=== PATIENT | male | born 1960 | race Caucasian/White ===

== ENCOUNTER 2024-11-14 10:14 | Outpatient (CLI) | payer MEDICARE, SELFPAY ==
--- NOTE | ~2024-11-14 | XR_ITS ---
EXAMINATION: XR chest 2V 11/14/2024 10:31 INDICATION: Cough PROCEDURE: 2 view chest COMPARISON: No prior studies for comparison. FINDINGS: The lungs are clear. The cardiomediastinal silhouette is within normal limits. There are no pleural effusions. There is no pneumothorax suspected. IMPRESSION: 1: NO ACUTE CARDIOPULMONARY DISEASE. Reviewed, dictated and finalized at location A.
== END 2024-11-14 10:15 | disposition home or self-care (01) ==
PROVIDERS: PCP Nurse Practitioner; Visit Provider Nurse Practitioner
DX: R05.9 Cough, unspecified (principal)
CPT/HCPCS: 71046

== ENCOUNTER 2024-11-23 10:31 | Outpatient (CLI) | payer MEDICARE, SELFPAY ==
--- OUTSIDE RECORDS SUMMARY | 2024-11-23 11:08 | XMS_ITS | Clinical Summary ---
Author Organization [facility] Address [address] [place] [address] Care Team Providers Care Skiver Welt End Name Role Phone Makeda North MD Unavailable [phone] Iris Pantoja NP Primary Care Provider [phone] Allergies No known active allergies Medications omeprazole (PriLOSEC) 40 mg capsule Take 1 capsule (40 mg total) by mouth 2 (two) times a day Active tadalafiL (CIALIS) 5 mg tablet Take 1 tablet (5 mg total) by mouth daily 2 Active metoprolol XL (TOPROL-XL) 50 mg extended release tabletIndications :Polycythemia, secondary,Primary hypertension Take 1 tablet (50 mg total) by mouth daily 2 Active amLODIPine (NORVASC) 10 mg tablet Take 1 tablet (10 mg total) by mouth daily Active atorvastatin (LIPITOR) 10 mg tablet 3 Active cholecalciferol (Vitamin D3) 2000 unit tablet 2 Active testosterone enanthate 50 mg/0.5 mL auto-injector Inject under the skin once a week Active Active Problems Problem Noted Date Diagnosed Date Polycythemia, secondary 07/09/2022 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 Seen by Dr. See, found to have 20/30 VA OU, no rAPD documented, but disc edema OS with avg RNFL 92um OD and 190um OS per written notes. He had no labwork or imaging at that time. Denies GCA symptoms; no pain with motility but has some general discomfort OS. Does take daily sildenafil. No hx TERRENCE. No prior known episodes of this. Today, exam notable for VA 20/20 OU (ecc OS), +rAPD OS, full color vision, normal motility and unremarkable anterior exam. On dilated exam he has a crowded nerve without obvious pallor and no edema OD and Gr III disc edema with flame heme OS. OCT RNFL avg 97 OD and 295 OS. The GCL was full OD and poorly reliable OS due to artifact. HVF 24-2 from 10/06/[address] See's office personally interpreted and notable for n inferior arcuate with nasal defect crossing horizontal meridian but not involving fixation OD (MD -9.91 PSD 13.40), and superior and inferior arcuates OS (MD - 11.07 PSD 10.81). The foveal threshold was turned off. 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 He does have risk factors for NAION and does take sildenafil which has been associated with this condition. Other things on the differential include compressive lesion, inflammatory or infiltrative. He does not have any GCA symptoms but given his age it is important to check ESR/CRP/Plt. Because his presentation is slightly unusual, it is reasonable to get an MRI brain including orbits with and without contrast. Plan: - Labwork: ESR/CRP/CBC - MRI brain including orbits with and without contrast - RTC 4-6 weeks repeat testing Resolved Problems Problem Noted Date Diagnosed Date Resolved Date Corneal ulcer 10/21/2021 Overview (10/21/2021): due to CTL overwear in past, OD Immunizations Immunization Administration Dates Next Due Influenza, Unspecified 06/24/2022 Surgical History Surgery Date Site/Laterality Comments COLONOSCOPY Medical History Medical History Date Comments Corneal ulcer due to CTL overw ear in past, OD Hypertension Family History Medical History Relation Name Comments Diabetes Brother Hypertension Brother Cancer Father Lung, smoker Diabetes Father Hypertension Father Cancer Mother HPV Vaginal cancer Mother Hypertension Sister Glaucoma Neg Hx Macular degeneration Neg Hx Relation Name Status Comments Brother Father Mother Sister Social History Tobacco Use Types Packs/Day Years Used Date Smoking Tobacco: Never Tobacco Cessation:Counseling Given: Not Answered AUDIT-C Answer Date Recorded Frequency of Alcohol Consumption Not on file 06/24/2023 Q2: How many drinks containi ng alcohol do you have on a typical day when you are drinking? 3 or 4 06/24/2023 Q3: How often do you have si x or more drinks on one occasion? Weekly 06/24/2023 Personal Safety Answer Date Recorded Getting School Help Needed Not on file 08/26 Sex and Gender Information Value Date Recorded Sex Assigned at Not on file Legal Sex Male 9:57 AM SIGN LANGUAGE TRANSLATOR Gender Identity Not on file Sexual Orientation Not on file Occupation Industry Job Start Date Job End Date [employer] Not on file Not on file Not on file Obstetrics History Last Filed Vital Signs Vital Sign Reading Time Taken Comments Blood Pressure 132/89 06/18/2024 9:14 AM CDT Pulse 65 06/18/2024 9:14 AM CDT Temperature 36.6 C (97.8 F) 06/18/2024 9:14 AM CDT Respiratory Rate 18 06/18/2024 9:14 AM CDT Oxygen Saturation 97% 06/18/2024 9:1 4 AM CDT Inhaled Oxygen Concentration - - Weight 100.5 kg (221 lb 9.6 oz) 024 9:14 AM 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 Height 180.3 cm (5' 11 ) 06/24/2023 8:5 7 AM CDT Body Mass Index 30.91 06/24/2023 8:57 AM CDT Plan of Treatment Health Maintenance Due Date Last Done Comments Colon Cancer Screening-Colonoscopy 1960 Depression Screening 1960 Fall Risk Assessment 1960 Hepatitis C Screening 1960 Prostate Cancer Screening-PSA 1960 DTaP/Tdap/Td Vaccine (1 - Tdap) 1969 Hepatitis B Screening 01/11/1976 Pneumococcal vaccine 65+ (1 of 1 - PCV) 01/11/2008 Zoster Vaccine (1 of 2) 01/11/2008 Well Visit 65+ 2023 Influenza Vaccine (Season Ended) 2025 11/03/20 22 Insurance MEDICARE [employer] CLAIMS OFFICE MEDICARE [employer] CLAIMS OFF[employer] Care Teams Skiver Welt End Relationship Specialty Start Date End Date Iris Pantoja NP [address] [place] [address] PCP - General Family Medicine 06/18/24 Makeda North MD [address] DIV [employer] BONE MARROW TRANSPLANT, [address] [place] [address] Medical Oncologist/Consumer Relations Complaint Clerk Hematology 06/24/23
--- OUTSIDE RECORDS SUMMARY | 2024-11-23 11:08 | XMS_ITS | Clinical Summary ---
Author Organization [facility] Address [address] [place] [address] Care Team Providers Care Fulfillment Specialist Name Role Phone Herve Rosado MD Unavailable Unavailable Iris Pantoja Primary Care Provider Allergies No known active allergies Medications atorvastatin 10 MG tablet Take 10 mg by mouth daily. Active omeprazole 40 MG capsule Take 40 mg by mouth 2 (two) times daily. Active Testosterone 75 MG PELLET 75 mg by Implant route every 4 (four) months. Active sildenafil 20 MG tablet Take 20 mg by mouth daily. Active losartan-hydroC HLOROthiazide 50-12.5 MG tablet Take 1 tablet by mouth daily. Active oxybutynin XL 10 MG 24 hr tablet Take 10 mg by mouth nightly. 1 Active tadalafil (CIALIS) 5 MG tablet Take 5 mg by mouth daily. Active rosuvastatin (CRESTOR) 5 MG tablet Take 5 mg by mouth nightly at bedtime. 3 Active predniSONE (DELTASONE) 20 MG tablet Take 1 tablet by mouth daily. 2 Active predniSONE (DELTASONE) 10 mg tablet TAKE FOUR TABLETS BY MOUTH DAILY FOR 4 DAYS, THEN TAKE THREE TABLETS DAILY FOR 4 DAYS, THEN TAKE TWO TABLETS DAILY FOR 4 DAYS, THEN TAKE ONE TABLET DAILY FOR 4 DAYS. 3 Active fish oil (OMEGA-3 FATTY ACID) 1000 MG Cap capsule Active neomycin-polymy tereso-dexamethaso ne (MAXITROL) 3.5-76653-8.1 Suspension INSTILL 1 DROP INTO RIGHT EYE THREE TIMES DAILY FOR 7 DAYS (SHAKE WELL) 2 Active metoprolol succinate ER (TOPROL-XL) 50 MG 24 hr tablet Take 50 mg by mouth daily. Active metFORMIN ER (GLUCOPHAGE-XR) 500 MG 24 hr tablet TAKE ONE TABLET BY MOUTH ONCE A DAY WITH LARGEST MEAL FOR A WEEK AND THEN INCREASE TO TWO TABLET BY MOUTH WITH LARGEST MEAL, AND THEN FINALLY INCREASE TO THREE TABLETS BY MOUTH DAILY WITH LARGEST MEAL THEREAFTER 2 Active magnesium oxide (MAG-OX) 250 MG tablet 250 mg daily. Active HYDROcodone-chl orpheniramine ER (TUSSIONEX) 10-8 MG/5ML suspension TAKE 5 ML BY MOUTH TWICE DAILY 2 Active vitamin B-12 (CYANOCOBALAMIN ) 1000 MCG tablet Take 1,000 mcg by mouth daily. Active Calcium Carb-Cholecalci ferol (CALCIUM 1000 + D) 1000-20 MG-MCG Tab Take by mouth Active azithromycin (ZITHROMAX) 250 MG tablet TAKE 2 TABLETS BY MOUTH ON DAY 1, AND THEN TAKE 1 TABLET BY MOUTH ONCE A DAY ON DAY 2 THROUGH DAY 5 2 Active amLODIPine (NORVASC) 5 MG tablet Take 1 tablet by mouth daily. 2 Active amLODIPine (NORVASC) 10 MG tablet Take 1 tablet by mouth daily. 3 Active NON FORMULARY FOLLOW PACKAGE DIRECTIONS TWICE DAILY 2 Active chlorhexidine (HIBICLENS) 4 % Liquid Use the night before surgery and the morning of surgery. 118 mL 3 Active ondansetron (ZOFRAN) 8 MG tablet Take 1 tablet (8 mg total) by mouth every 8 (eight) hours as needed. 20 tablet 3 Active KNEE WALKERIndicatio ns:Posterior tibial tendonitis, left Apply 1 Device topically daily. 1 each 3 Active Active Problems Problem Noted Date Diagnosed Date S/P TKR (total knee replacement), left 0 Total knee replacement status, right 02/20/2020 Chest pain, unspecified chest pain type 03/05/20 16 Abnormal EKG 03/05/2016 Erosive gastritis Overview (03/05/2016): PMH OF ESOPHAGEAL DILATATION Encounters Date Type Department Care Team Description 09/17/2024 10:13 AM STENO POOL SUPERVISOR - 09/17/2024 11:59 PM STENO POOL SUPERVISOR Hospital Encounter [facility] [address] [place] [address] Ludivina Meza MD Discharge Disposition: Home or Self Care (Routine Discharge) 09/17/2024 Travel from Last 3 Months Immunizations Name Administration Dates Next Due MODERNA COVID-19 (AUTOMOTIVE PROFESSIONAL JULI MAYKEL), MRNA, LNP-S, PF, 50 MCG/ 0.25 ML DOSE 08/06/2021 Family History Medical History Relation Comments Diabetes Brother Hyperlipidemia Brother Hypertension Brother Cancer Father Cancer Mother Hyperlipidemia Sister Hypertension Sister Heart Disease Neg Hx Relation Status Comments Brother Father Mother Alive Sister Social History Tobacco Use Types Packs/Day Years Used Date Smoking Tobacco: Never Smokeless Tobacco: Never Tobacco Cessation:Counseling Given: Not Answered Alcohol Use Standard Drinks/Week Comments Yes 3 (1 standard drink = 0.6 oz pur e alcohol) social weekend drinks Sex and Gender Information Value Date Recorded Sex Assigned at Not on file Legal Sex Male 3:57 PM CDT Gender Identity Not on file Sexual Orientation Not on file Last Filed Vital Signs Vital Sign Reading Time Taken Comments Blood Pressure 130/96 10/31/2020 8:10 AM STENO POOL SUPERVISOR Pulse 76 10/31/2020 8:10 AM STENO POOL SUPERVISOR Temperature 36.4 C (97.6 F) 10/31/2020 8:10 AM STENO POOL SUPERVISOR Respiratory Rate 16 10/31/2020 8:10 AM STENO POOL SUPERVISOR Oxygen Saturation 97% 10/31/2020 8:10 AM STENO POOL SUPERVISOR Inhaled Oxygen Concentration - - Weight 91.6 kg (202 lb) 01/03/2023 11:42 AM CDT Height 180.3 cm (5' 11 ) 01/03/2023 11:42 AM CDT Body Mass Index 28.17 01/03/2023 11:42 AM CDT Plan of Treatment Health Maintenance Due Date Last Done Comments Colorectal Cancer Screening Colonoscopy (10 Years) 1958 Hepatitis C 01/11/1976 DTaP, Tdap and Td Vaccines ( 1 - Tdap) 1977 Zoster Vaccines (1 of 2) 01/11/2008 Annual Medicare Wellness Visit 2023 Pneumococcal Vaccine: 65+ Years (2 of 2 - PPSV23 or PCV20) 2023 06/13/2019 COVID-19 Vaccine (4 - 2023-2 5 season) 2024 08/06/2021, 12/12/2020, 11/14/2020 RSV Immunization or 60+ Years (1 - 1-dose 75+ series) 2033 Meningococcal B Vaccine Aged Out No l onger eligible based on patient's age to complete this topic Meningococcal Vaccine Aged Out No kranthi susy eligible based on patient's age to complete this topic RSV Immunizations Under 20 Months Aged Out No longer eligible b ased on patient's age to complete this topic Goals Goal Patient Goal Type Associated Problems Recent Progress Patient-Stated? Author HDL > 40 Result Component 22(09/29/2020 9:15 AM STENO POOL SUPERVISOR) No Herbert Penaloza assistant professor nurse education Procedure Name Priority Date/Time Associated Diagnosis Comments CT CHEST WWO CON Routine 09/17/2024 10:4 1 AM STENO POOL SUPERVISOR Chronic cough CT SOFT TISSUE NECK W CON Routine 09/17/2024 10:41 AM STENO POOL SUPERVISOR Chronic hoarseness from Last 3 Months Results * CT CHEST WWO CON (09/17/2024 10:41 AM STENO POOL SUPERVISOR) Anatomical Region Laterality Modality Chest Computed Tomogra phy 09/19/2024 8:29 AM STENO POOL SUPERVISOR Impressions 09/19/2024 8:37 AM STENO POOL SUPERVISOR IMPRESSION: 1. No acute intrathoracic process identified. No source of the patient's symptoms identified. 2. Coronary artery disease. 3. Aortic valve calcification. 4. Hepatic steatosis. 5. Additional chronic/nonurgent findings as described. Ordered By: LUDIVINA MEZA Interpreted By: Yoel Nielsen MD, 09/19/2024 8:29 AM Narrative 09/19/2024 8:37 AM STENO POOL SUPERVISOR [address] [place] [address] Examination: CT of the chest without and with contrast. Exam time: 1038 hours. Clinical history: Persistent cough. Comparison: CTA chest, abdomen and pelvis, 06/12/2020. Technique: Spiral scanning was performed through the chest prior to and following the administration of intravenous contrast. Sagittal and coronal reconstructions were performed from the data sets. A dose lowering technique was used for this procedure, which may include, but is not limited to, dose reduction techniques, automated exposure control, the use of iterative reconstruction and ALARA/Image Gently techniques. Findings: Calcific coronary artery disease, aortic valve calcification and minor atherosclerotic calcification of the aorta and arch vessels noted. A physiologic volume of pericardial fluid is present. Gas bubbles in the pulmonary outflow tract are presumably iatrogenic. The heart and great vessels are otherwise unremarkable. No hilar or mediastinal adenopathy is identified. No endobronchial abnormality is identified. There is minimal subsegmental atelectasis posteriorly in the left lower lobe. Allowing for respiratory motion, the lungs are otherwise clear. No pleural abnormalities are seen. The chest wall structures are unchanged. The included sections through the upper abdomen show no acute process. The liver is mildly and diffusely diminished in attenuation relative to the spleen on the precontrast images, compatible with steatosis. Incidental splenule is again evident. There is stable mild splenomegaly (approximately 15 cm). Haziness at the root of the mesentery is again noted suggesting mesenteric panniculitis, presumably incidental and asymptomatic. Procedure Note Yoel Nielsen MD - 09/19/[address] [place] [address] Examination: CT of the chest without and with contrast. Exam time: 1038 hours. Clinical history: Persistent cough. Comparison: CTA chest, abdomen and pelvis, 06/12/2020. Technique: Spiral scanning was performed through the chest prior to andfollowing the administration of intravenous contrast. Sagittal and coronalreconstructions were performed from the data sets. A dose loweringtechnique was used for this procedure, which may include, but is notlimited to, dose reduction techniques, automated exposure control, the useof iterative reconstruction and ALARA/Image Gently techniques. Findings: Calcific coronary artery disease, aortic valve calcification andminor atherosclerotic calcification of the aorta and arch vessels noted. Aphysiologic volume of pericardial fluid is present. Gas bubbles in thepulmonary outflow tract are presumably iatrogenic. The heart and greatvessels are otherwise unremarkable. No hilar or mediastinal adenopathy isidentified. No endobronchial abnormality is identified. There is minimalsubsegmental atelectasis posteriorly in the left lower lobe. Allowing forrespiratory motion, the lungs are otherwise clear. No pleuralabnormalities are seen. The chest wall structures are unchanged. Theincluded sections through the upper abdomen show no acute process. Theliver is mildly and diffusely diminished in attenuation relative to thespleen on the precontrast images, compatible with steatosis. Incidentalsplenule is again evident. There is stable mild splenomegaly(approximately 15 cm). Haziness at the root of the mesentery is againnoted suggesting mesenteric panniculitis, presumably incidental andasymptomatic. IMPRESSION: 1. No acute intrathoracic process identified. No source of the patient'ssymptoms identified. 2. Coronary artery disease. 3. Aortic valve calcification. 4. Hepatic steatosis. 5. Additional chronic/nonurgent findings as described. Ordered By: LUDIVINA MEZA Interpreted By: Yoel Nielsen MD, 09/19/2024 8:29 AM Ludivina Meza MD CT Final Result * CT SOFT TISSUE NECK W CON (09/17/2024 10:41 AM STENO POOL SUPERVISOR) Anatomical Region Laterality Modality Neck Computed Tomogra phy 09/17/2024 11:3 2 AM STENO POOL SUPERVISOR Impressions 09/20/2024 9:20 AM STENO POOL SUPERVISOR IMPRESSION: 1. No definite mass lesion or suspicious lymphadenopathy identified in the neck. No overt inflammatory changes or fluid collections identified in the neck soft tissues. 2. Atherosclerosis. The attending radiologist has reviewed the image(s) and agrees with the content of this report. Ordered By: LUDIVINA MEZA Interpreted By: Timo Smart MD, 09/17/2024 11:32 AM Narrative 09/20/2024 9:20 AM STENO POOL SUPERVISOR [address] [place] [address] EXAMINATION: CT SOFT TISSUE NECK W CON DATE: 09/17/2024 10:40 AM HISTORY: CHRONIC HOARSENESS ; 1.5 months of cough and tickle in throat. COMPARISON: None available TECHNIQUE: Computed tomography of the neck was performed after intravenous administration of 87 mL of Isovue-370 according to routine protocol without immediate complication. A dose lowering technique was used for this procedure, which may include, but is not limited to, dose reduction technique, automated exposure control, the use of iterative reconstruction, and ALARA (As Low As Reasonably Achievable) / Image Gently techniques. FINDINGS: Dental amalgam streak artifact limits evaluation of the oral cavity. The Nasopharynx, oropharynx, hypopharynx, and larynx are unremarkable. The neck vasculature is patent. Atherosclerotic calcifications noted along the carotid arteries. The major salivary glands are symmetric. The thyroid gland is unremarkable. No cervical lymphadenopathy is identified. Images of the intracranial compartment reveal no acute appearing abnormality. Intracranial vascular calcifications. Visualized mastoid air cells and paranasal sinuses are clear. The orbits are unremarkable. Included portions of the upper thorax are unremarkable, and the visualized lung apices are clear. Degenerative changes noted in the spine. Procedure Note Lalit Tanner MD - 09/20/[address] [place] [address] EXAMINATION: CT SOFT TISSUE NECK W CON DATE: 09/17/2024 10:40 AM HISTORY: CHRONIC HOARSENESS ; 1.5 months of cough and tickle in throat. COMPARISON: None available TECHNIQUE: Computed tomography of the neck was performed afterintravenous administration of 87 mL of Isovue-370 according to routineprotocol without immediate complication. A dose lowering technique wasused for this procedure, which may include, but is not limited to, dosereduction technique, automated exposure control, the use of iterativereconstruction, and ALARA (As Low As Reasonably Achievable) / Image Gentlytechniques. FINDINGS: Dental amalgam streak artifact limits evaluation of the oral cavity. TheNasopharynx, oropharynx, hypopharynx, and larynx are unremarkable. Theneck vasculature is patent. Atherosclerotic calcifications noted along thecarotid arteries. The major salivary glands are symmetric. The thyroidgland is unremarkable. No cervical lymphadenopathy is identified. Images of the intracranial compartment reveal no acute appearingabnormality. Intracranial vascular calcifications. Visualized mastoid aircells and paranasal sinuses are clear. The orbits are unremarkable. Included portions of the upper thorax are unremarkable, and the visualizedlung apices are clear. Degenerative changes noted in the spine. IMPRESSION: 1. No definite mass lesion or suspicious lymphadenopathy identified in theneck. No overt inflammatory changes or fluid collections identified in theneck soft tissues. 2. Atherosclerosis. The attending radiologist has reviewed the image(s) and agrees with thecontent of this report. Ordered By: LUDIVINA MEZA Interpreted By: Timo Smart MD, 09/17/2024 11:32 AM Ludivina Meza MD CT Final Result from Last 3 Months Insurance MEDICARE [facility] COMMERCIAL PAYER Care Teams Fulfillment Specialist Relationship Specialty Start Date End Date Iris Pantoja APNP [address] [place] [address] PCP - General NURSE PRACTITIONER 09/16/23 Herve Rosado MD [place] Needle Grader CARDIOVASCULAR DISEASE 02/24/16
--- OUTSIDE RECORDS SUMMARY | 2024-11-23 11:08 | XMS_ITS | Encounter Summary ---
Author Organization [facility] Address [facility] access hospital[address] [place] [address] Care Team Providers Care Crester Name Role Phone Herve Rosado MD Unavailable Unavailable Michael Luis MD Primary Care Provider [phone] Iris Pantoja Primary Care Provider Encounter Details Date Type Department Care Team (Late st Contact Info) Description 10/22/2020 Hospital Orders Only [facility] [address] [place] [address] John Hernandez MD [address] [place] [address] Social History Tobacco Use Types Packs/Day Years Used Date Smoking Tobacco: Never Smokeless Tobacco: Never Alcohol Use Standard Drinks/Week Comments Not Currently 10 (1 standard drink = 0.6 oz pu re alcohol) Sex and Gender Information Value Date Recorded Sex Assigned at Not on file Legal Sex Male 3:57 PM CDT Gender Identity Not on file Sexual Orientation Not on file COVID-19 Exposure Response Date Recorded In the last month, have you been in contact with someone who was confirmed or suspected to have Coronavirus / COVID-19? No / Unsure 10/24/2020 11:18 AM FANCY NEEDLEWORKER documented as of this encounter Plan of Treatment Not on file documented as of this encounter Goals Goal Patient Goal Type Associated Problems Recent Progress Patient-Stated? Author HDL > 40 Result Component 22(09/29/2020 9:15 AM FANCY NEEDLEWORKER) No Herbert Penaloza RN documented as of this encounter Visit Diagnoses Not on filedocumented in this encounter Additional Health Concerns Infection Onset Date Last Indicated Resolved Time COVID-19 Rule Out 10/27/2020 10/28/2020 10/30/2020 5:50 AM FANCY NEEDLEWORKER COVID-19 Rule Out 02/03/2024 02/03/2024 02/04/2024 5:10 PM CDT Parainfluenza 02/03/2024 02/03/2024 02/13/2024 12: 32 AM CDT documented as of this encounter Care Teams Crester Relationship Specialty Start Date End Date Michael Luis MD [address] [place] [address] PCP - General FAMILY PRACTICE 06/12/20 09/15/23 Iris Pantoja APNP [address] [place] [address] PCP - General NURSE PRACTITIONER 09/16/23 Herve Rosado MD [place] Kiln Loader CARDIOVASCULAR DISEASE 02/24/16 documented as of this encounter
--- OUTSIDE RECORDS SUMMARY | 2024-11-23 11:08 | XMS_ITS | CONTINUITY OF CARE DOCUMENT ---
Author Name aren younger Address Unknown Organization [facility] Address [address] [place] [address] Phone [phone] Care Team Providers Care Transmitter Tester Name Role Phone Kiran Julian DO Unavailable [phone] JUSTO CHERY MD Unavailable JUSTO CHERY MD Unavailable PROBLEMS Condition Status Date Provider Notes Cardiovascular screening active Aria Kennedy INSURANCE PROVIDERS Payer name Policy type / Coverage type Jena red constitution party ID SELF PAY TREATMENT PLAN Date Name CT, Coronary Calcium Score HISTORY OF PROCEDURES Procedure Date Procedure Name Provider Procedure Notes S tatus CT- Coronary CA score Kiran Julian DO completed
--- OUTSIDE RECORDS SUMMARY | 2024-11-23 11:08 | XMS_ITS | Encounter Summary ---
Author Organization [facility] Address [address] [place] [address] Care Team Providers Care Extrusion Utility Worker Name Role Phone Herve Rosado MD Unavailable Unavailable Sunil Griffith MD Primary Care Provider [phone] Michael Luis MD Primary Care Provider [phone] Iris Pantoja Primary Care Provider [phone] Encounter Details Date Type Department Care Team (Late st Contact Info) Description 02/25/2016 Abstract [facility] [address] [place] [address] Herve Rosado MD Social History Tobacco Use Types Packs/Day Years Used Date Smoking Tobacco: Never Assessed Sex and Gender Information Value Date Recorded Sex Assigned at Not on file Legal Sex Male 3:57 PM CDT Gender Identity Not on file Sexual Orientation Not on file documented as of this encounter Plan of Treatment Not on file documented as of this encounter Visit Diagnoses Not on filedocumented in this encounter Additional Health Concerns Infection Onset Date Last Indicated Resolved Time COVID-19 Rule Out 10/27/2020 10/28/2020 10/30/2020 5:50 AM AIR SUPPORT OPERATIONS OPERATOR COVID-19 Rule Out 02/03/2024 02/03/2024 02/04/2024 5:10 PM CDT Parainfluenza 02/03/2024 02/03/2024 02/13/2024 12: 32 AM CDT documented as of this encounter Care Teams Extrusion Utility Worker Relationship Specialty Start Date End Date Sunil Griffith MD [address] [place] [address] PCP - General FAMILY PRACTICE 03/15/16 06/11/20 Michael Luis MD [address] [place] [address] PCP - General FAMILY PRACTICE 06/12/20 09/15/23 Iris Pantoja APNP [address] [place] [address] PCP - General NURSE PRACTITIONER 09/16/23 Herve Rosado MD [place] It Quality Analyst CARDIOVASCULAR DISEASE 02/24/16 documented as of this encounter
--- OUTSIDE RECORDS SUMMARY | 2024-11-23 11:08 | XMS_ITS | Encounter Summary ---
Author Organization [facility] Address [facility] [place] [address] Care Team Providers Care Smudger Name Role Phone Herve Rosado MD Unavailable Unavailable Sunil Griffith MD Primary Care Provider [phone] Michael Luis MD Primary Care Provider [phone] Iris Pantoja Primary Care Provider [phone] Encounter Details Date Type Department Care Team (Late st Contact Info) Description 01/27/2019 Abstract [facility] [address] [place] [address] , Generic Conversion, Social History Tobacco Use Types Packs/Day Years Used Date Smoking Tobacco: Never Smokeless Tobacco: Never Alcohol Use Standard Drinks/Week Comments Yes 10 (1 standard drink = 0.6 oz [...] > 40 Result Component 22(09/29/2020 9:15 AM ENTRY LEVEL ACCOUNT EXECUTIVE) No Herbert Penaloza, RN documented as of this encounter Visit Diagnoses Not on filedocumented in this encounter Additional Health Concerns Infection Onset Date Last Indicated Resolved Time COVID-19 Rule Out 10/27/2020 10/28/2020 10/30/2020 5:50 AM ENTRY LEVEL ACCOUNT EXECUTIVE COVID-19 Rule Out 02/03/2024 02/03/2024 02/04/2024 5:10 PM CDT Parainfluenza 02/03/2024 02/03/2024 02/13/2024 12: 32 AM CDT documented as of this encounter Care Teams Smudger Relationship Specialty Start Date End Date Sunil Griffith MD [address] [place] [address] PCP - General FAMILY PRACTICE 03/15/16 06/11/20 Michael Luis MD [address] [place] [address] PCP - General FAMILY PRACTICE 06/12/20 09/15/23 Iris Pantoja APNP [address] [place] [address] PCP - General NURSE PRACTITIONER 09/16/23 Herve Rosado MD [address] Bailiff Or Sheriff CARDIOVASCULAR DISEASE 02/24/16 documented as of this encounter
--- OUTSIDE RECORDS SUMMARY | 2024-11-23 11:08 | XMS_ITS | Referral Summary ---
Author Organization [facility] Address [address] [place] [address] Care Team Providers Care Uniform Attendant Name Role Phone Makeda North MD Unavailable [phone] Iris Pantoja NP Primary Care Provider [phone] Allergies No known active allergies Medications omeprazole [...] 10/21/2021 Assessment & Plan (10/21/2021 12:17 PM DIRECTOR OF PROVIDER RELATIONS): 61yoM with hx HTN, HLD, ED referred [...] Administration Dates Next Due Influenza, Unspecified 06/24/2022 Social History Tobacco Use Types Packs/Day Years [...] on file Legal Sex Male 9:57 AM DIRECTOR OF PROVIDER RELATIONS Gender Identity Not on file Sexual Orientation Not on file 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
[2024-11-23 14:01] LABS: Basophils Percent Auto 0.1 % (0.2-1.2); Eosinophils Percent Auto 0.1 % (0-4.4); Hematocrit 55.3 % (42.0-52.0); Hemoglobin 16.5 g/dL (14.0-18.0); Immature Granulocyte Absolute 0.11 K/mm3 (0.00-0.031); Immature Granulocyte Percent A 0.9 % (0-0.5); Lymphocytes Percent Auto 11.7 % (18.3-44.2); Mean Corpuscular HGB Conc 29.8 g/dl (32-36); Mean Corpuscular Volume 77.2 fl (80-100); Mean Platelet Volume 10.3 fl (7.4-10.4); Monocytes Absolute Auto 1.1 K/mm3 (0.1-0.6); Monocytes Percent Auto 9.4 % (2.6-8.5); Neutrophils Absolute Auto 9.3 K/mm3 (1.3-6.7); Neutrophils Percent Auto 77.8 % (45.5-73.1); Platelet Count Result 264 k/mm3 (150-375); Red Blood Count 7.16 M/mm3 (4.6-6.20); Red Cell Distribution Width 20.5 % (11.5-14.5)
[2024-11-23 14:06] LABS: Add Urine Microscopic? NO; Appearance Urine Clear (Clear); Bilirubin Urine Negative (Negative); Blood Urine Negative (Negative); Color Urine Yellow (Yellow); Glucose Urine UA Negative (Negative); Ketones Urine Negative (Negative); Leukocyte Esterase Ur Negative LEU/UL (Negative); Nitrate Urine Negative (Negative); Protein Urine Negative (Negative); Specific Grav Ur 1.008 (1.001-1.035); Urobilinogen Urine 0.2 mg/dL (<2.0); pH Urine 5.5 (5.0-9.0)
[2024-11-23 14:28] LABS: Anisocytosis 2+; Giant Platelets Present; Hypochromasia 1+; Large Platelets Present; Platelet Estimate Adequate (Adequate); Schistocytes None Seen
[2024-11-23 14:33] LABS: Erythrocyte Sedimentation Rate 3 mm/hr (0-20)
[2024-11-23 14:44] LABS: Alanine Aminotransferase 41 U/L (6-50); Albumin Level 4.8 g/dL (3.5-5.1); Alkaline Phosphatase 75 U/L (38-126); Anion Gap 16 mmol/L (4-12); Aspartate Amino Transferase 42 U/L (17-59); Bilirubin,Total 0.8 mg/dL (0.2-1.3); Blood Urea Nitrogen 16 mg/dL (9-20); Calcium 9.1 mg/dL (8.4-10.2); Carbon Dioxide 22 mmol/L (22-30); Chloride 101 mmol/L (98-107); Estimated Glomerular Filt Rate > 60; Glucose 91 mg/dL (65-110); Potassium 4.1 mmol/L (3.4-5.0); Sodium 139 mmol/L (137-145)
[2024-11-23 15:12] LABS: HIV 1/2 Ab P24 Ag Result Negative (Negative)
[2024-11-26 15:33] LABS: ANA Cascade Screen NEGATIVE (NEGATIVE)
== END 2024-11-23 10:32 | disposition home or self-care (01) ==
LOC: ANHGOSHLAB 10:36
PROVIDERS: PCP Nurse Practitioner; Visit Provider Nurse Practitioner
DX: R50.9 Fever, unspecified (principal)
CPT/HCPCS: 36415; 80053; 81003; 83516; 84443; 85025; 85652; 86038; 86225; 86235; 86703; G0432

== ENCOUNTER 2024-12-06 12:55 | Outpatient (CLI) | payer MEDICARE, SELFPAY ==
--- NOTE | ~2024-12-06 | CT_ITS ---
EXAMINATION: CT sinus w con DATE: 12/06/2024 13:45 INDICATION: Chronic sinusitis. Concern for mucormycosis. TECHNIQUE: Computed tomography (CT) of the paranasal sinuses was performed with 100 mL Omnipaque-350 intravenous contrast. Coronal reconstructions were obtained. Iterative reconstruction technique was e mployed. The dose-length product was 355.01 mGy-cm. COMPARISON: None FINDINGS: There is mild mucoperiosteal thickening in the bilateral maxillary sinuses extending to the bilateral ostiomeatal units which remain patent. Additional mild mucoperiosteal thickening the right frontal s inus and sent to the patent right frontoethmoidal recess. No layering fluid within the nasal sinuses, the butler which remain intact. Nasal septum is midline. Faye bullosa of the right middle turbinate . Orbits are normal. Mastoid air cells and middle ear cavities are clear. Maxillofacial soft tissues are unremarkable. No abscesses. IMPRESSION: 1. Mild mucoperiosteal thickening in the maxillary and right frontal sinuses. No evident fluid/mucus to suggest acute sinusitis. Reviewed, dictated and finalized at location A. IMPRESSION: 1. Mild mucoperiosteal thickening in the maxillary and right frontal sinuses. N o evident fluid/mucus to suggest acute sinusitis.
--- OUTSIDE RECORDS SUMMARY | 2024-12-06 13:11 | XMS_ITS | Clinical Summary ---
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
--- OUTSIDE RECORDS SUMMARY | 2024-12-06 13:11 | XMS_ITS | Referral Summary ---
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
--- OUTSIDE RECORDS SUMMARY | 2024-12-06 13:11 | XMS_ITS | Encounter Summary ---
Author Organization [facility] Address [facility] [place] [address] Care Team Providers Care Academic Dean Name Role Phone Herve Rosado MD Unavailable Unavailable Sunil Griffith MD Primary Care Provider [phone] Michael Luis MD Primary Care Provider [phone] Iris Pantoja Primary Care Provider [phone] Jose Elias Borja DO Primary Care Provider [phone] Encounter Details Date Type Department Care Team (Late st Contact Info) Description 01/27/2019 Abstract [facility] [address] [place] [address] , Generic Conversion, Social History [...] > 40 Result Component 22(09/29/2020 9:15 AM TUB PULLER) No Herbert Penaloza, RN documented as of this encounter Visit Diagnoses Not on filedocumented in this encounter Additional Health Concerns Infection Onset Date Last Indicated Resolved Time COVID-19 Rule Out 10/27/2020 10/28/2020 10/30/2020 5:50 AM TUB PULLER COVID-19 Rule Out 02/03/2024 02/03/2024 02/04/2024 5:10 PM CDT Parainfluenza 02/03/2024 02/03/2024 02/13/2024 12: 32 AM CDT documented as of this encounter Care Teams Academic Dean Relationship Specialty Start Date End Date Sunil Griffith MD [address] [place] [address] PCP - General FAMILY PRACTICE 03/15/16 06/11/20 Michael Luis MD [address] [place] [address] PCP - General FAMILY PRACTICE 06/12/20 09/15/23 Iris Pantoja APNP [address] [place] [address] PCP - General NURSE PRACTITIONER 09/16/23 11/27/24 Jose Elias Borja DO [address] [facility] [address] [place] [id number] PCP - General INTERNAL MEDICINE 11/28/24 Herve Rosado MD [place] Acoustic Engineer CARDIOVASCULAR DISEASE 02/24/16 documented as of this encounter
--- OUTSIDE RECORDS SUMMARY | 2024-12-06 13:11 | XMS_ITS | Encounter Summary ---
Author Organization [facility] Address [facility] [place] [address] Care Team Providers Care Fur Trimmer Name Role Phone Herve Rosado MD Unavailable Unavailable Michael Luis MD Primary Care Provider [phone] Iris Pantoja Primary Care Provider Jose Elias Borja DO Primary Care Provider [phone] Encounter Details Date Type Department Care Team (Late st Contact Info) Description 10/22/2020 Hospital Orders Only [facility] [address] [place] [address] John Hernandez MD [address] [place] [address] Social History Tobacco Use Types [...] COVID-19? No / Unsure 10/24/2020 11:18 AM ROLLER EMBOSSER documented as of this encounter Plan of Treatment Not on file documented as of this encounter Goals Goal Patient Goal Type Associated Problems Recent Progress Patient-Stated? Author HDL > 40 Result Component 22(09/29/2020 9:15 AM ROLLER EMBOSSER) No Herbert Penaloza RN documented as of this encounter Visit Diagnoses Not on filedocumented in this encounter Additional Health Concerns Infection Onset Date Last Indicated Resolved Time COVID-19 Rule Out 10/27/2020 10/28/2020 10/30/2020 5:50 AM ROLLER EMBOSSER COVID-19 Rule Out 02/03/2024 02/03/2024 02/04/2024 5:10 PM CDT Parainfluenza 02/03/2024 02/03/2024 02/13/2024 12: 32 AM CDT documented as of this encounter Care Teams Fur Trimmer Relationship Specialty Start Date End Date Michael Luis MD [address] [place] [address] PCP - General FAMILY PRACTICE 06/12/20 09/15/23 Iris Pantoja APNP [address] [place] [address] PCP - General NURSE PRACTITIONER 09/16/23 11/27/24 Jose Elias Borja DO [address] [facility] [address] [address] PCP - General INTERNAL MEDICINE 11/28/24 Herve Rosado MD [place] Able Bodied Seaman CARDIOVASCULAR DISEASE 02/24/16 documented as of this encounter
--- OUTSIDE RECORDS SUMMARY | 2024-12-06 13:11 | XMS_ITS | Clinical Summary ---
Author Organization [facility] Address [address] [place] [address] Care Team Providers Care Locomotive Pipe Fitter Name Role Phone Herve Rosado MD Unavailable Unavailable Jose Elias Borja DO Primary Care Provider [phone] Allergies No known active allergies Medications atorvastatin [...] Cap capsule Active neomycin-polymy tereso-dexamethaso ne (MAXITROL) 3.5-84454-7.1 Suspension INSTILL 1 DROP INTO RIGHT EYE [...] Encounters Date Type Department Care Team Description 11/29/2024 9:24 AM CDT - 11/29/2024 11:59 PM CDT Hospital Encounter [place] [address] [place] [address] Opal Bell, MISSILE TECHNICIAN Discharge Disposition: Home or Self Care (Routine Discharge) 11/29/2024 Orders Only [place] [address] [place] [address] Opal Bell MISSILE TECHNICIAN 11/28/2024 3:25 PM CDT - 11/28/2024 11:59 PM CDT Hospital Encounter [address] [place] [address] Opal Bell, MISSILE TECHNICIAN Discharge Disposition: Home or Self Care (Routine Discharge) 11/28/2024 Orders [place] [address] [place] [address] Opal Bell, MISSILE TECHNICIAN 11/28/2024 Travel 09/17/2024 10:13 AM GROUND WOOD SUPERVISOR - 09/17/2024 11:59 PM GROUND WOOD SUPERVISOR Hospital Encounter [address] [place] [address] Ludivina Meza MD Discharge Disposition: Home or Self Care (Routine Discharge) 09/17/2024 Travel from Last 3 Months Immunizations Immunization Administration Dates Next Due MODERNA COVID-19 (TOBACCO WAREHOUSE MANAGER JULI MAYKEL), MRNA, LNP-S, PF, 50 MCG/ [...] Comments Blood Pressure 130/96 10/31/2020 8:10 AM GROUND WOOD SUPERVISOR Pulse 76 10/31/2020 8:10 AM GROUND WOOD SUPERVISOR Temperature 36.4 C (97.6 F) 10/31/2020 8:10 AM GROUND WOOD SUPERVISOR Respiratory Rate 16 10/31/2020 8:10 AM GROUND WOOD SUPERVISOR Oxygen Saturation 97% 10/31/2020 8:10 AM GROUND WOOD SUPERVISOR Inhaled Oxygen Concentration - - Weight [...] 1977 Zoster Vaccines (1 of 2) 01/11/2008 Pneumococcal Vaccine: 50+ Years (2 of 2 - PPSV23) 06/13/2020 06/13/2019 Annual Medicare Wellness Visit 2023 COVID-19 Vaccine (4 - 2023-2 5 season) [...] > 40 Result Component 22(09/29/2020 9:15 AM GROUND WOOD SUPERVISOR) No Herbert Penaloza, cherry dipper Procedure Name Priority Date/Time Associated Diagnosis Comments CBC W/DIFF AUTOMATED Routine 11/29/2024 9:44 AM CDT Fever, unspecified ANTINUCLEAR ANTIBODY WI RFX Routine 11/28/2024 3:50 PM CDT Fever, unspecified TOXOPLASMA, IGM ANTIBODY Routine 11/28/2024 3:50 PM CDT Fever, unspecified MISCELLANEOUS LAB TEST Routine 3:50 PM CDT Fever, unspecified HC EBV NUCLEAR AG-90 Routine 11/28/2024 3:50 PM CDT Fever, unspecified C-REACTIVE PROTEIN Routine 11/28/2024 3: 50 PM CDT Fever, unspecified CT CHEST WWO CON Routine 09/17/2024 10:4 1 AM GROUND WOOD SUPERVISOR Chronic cough CT SOFT TISSUE NECK W CON Routine 09/17/2024 10:41 AM GROUND WOOD SUPERVISOR Chronic hoarseness from Last 3 Months Results * (ABNORMAL) CBC W/DIFF AUTOMATED (11/29/2024 9:44 AM CDT) WBC 8.81 4.00 - 10.80 x10'3/uL 11/29/2024 9:48 AM CDT [facility] RBC 6.88(H) 4.50 - 6.10 x10'6/uL 11/29/2024 9:48 AM CDT [facility] HGB 15.9 13.0 - 18.0 G/DL 11/29/2024 9:48 AM CDT [facility] HCT 52.2(H) 37.0 - 52.0 % 11/29/2024 9:48 AM CDT [facility] MCV 75.9(L) 78.0 - 100.0 FL 11/29/2024 9:48 AM CDT [facility] MCH 23.1(L) 27.0 - 31.0 PG 11/29/2024 9:48 AM CDT [facility] MCHC 30.5(L) 33.0 - 36.0 G/DL 11/29/2024 9:48 AM CDT [facility] RDW 20.1(H) 11.5 - 14.5 % 11/29/2024 9:48 AM CDT [facility] PLT 241 150 - 350 x10'3/uL 11/29/2024 9:48 AM CDT [facility] MPV 9.6 7.4 - 10.4 FL 11/29/2024 9:48 AM CDT [facility] CBC COMMENT NORMAL REFERENCE RANGE NOT ESTABLISHED FOR THE PROPORTIONAL LEUKOCYTE DIFFERENTIAL. 11/29/2024 9:48 AM CDT [facility] NEUTROPHILS % 71.1 % 11/29/2024 9:48 AM CDT [facility] LYMPHOCYTES % 16.5 % 11/29/2024 9:48 AM CDT [facility] MONOCYTES % 11.6 % 11/29/2024 9:48 AM CDT [facility] EOSINOPHILS % 0.1 % 11/29/2024 9:48 AM CDT [facility] BASOPHILS % 0.1 % 11/29/2024 9:48 AM CDT [facility] IMMATURE GRANS % 0.6 % 11/30/19 9:48 AM CDT [facility] NRBC % 0.0 % 11/29/2024 9:48 AM CDT [facility] ABS. NEUTROPHILS 6.27 1.60 - 8.30 x10'3/uL 11/29/2024 9:48 AM CDT [facility] ABS. LYMPHOCYTES 1.45 0.80 - 4.70 x10'3/uL 11/29/2024 9:48 AM CDT [facility] ABS. MONOCYTES 1.02 0.00 - 1.50 x10'3/uL 11/29/2024 9:48 AM CDT [facility] ABS. EOSINOPHILS 0.01 0.00 - 0.40 x10'3/uL 11/29/2024 9:48 AM CDT [facility] ABS. BASOPHILS 0.01 0.00 - 0.20 x10'3/uL 11/29/2024 9:48 AM CDT [facility] ABS. IMMATURE GRANULOCYTES 0.05(H) 0.00 - 0.03 x10'3/uL 11/29/2024 9:48 AM CDT [facility] ABS. NUCLEATED RBC'S 0.00 0.00 - 0.01 x10'3/uL 11/29/2024 9:48 AM CDT [facility] 11/29/2024 9:44 AM CDT us Opal Bell APRN LABORATORY Final Result [facility] [address] [place] [address], [place] [phone] * ANTINUCLEAR ANTIBODY WI RFX (11/28/2024 3:50 PM CDT) TERRI 0.4 12/03/2024 11:47 AM CDT [facility] Comment: NEGATIVE: <0.7 RATIO TERRI PROFILE AND TITER NOT PERFORMED THE TERRI SCREEN TESTS FOR THE FOLLOWING ANTIBODIES BY EIA: SSA1 (RO), SSB1 (LA), ALVA, SCL70, JO1, CENTROMERE, PLANT OPERATIONS VICE PRESIDENT HISTONE MUST BE ORDERED SEPARATELY DNA (DS) ANTIBODY 2.5 IU/ML 025 11:47 AM CDT [facility] Comment: NEGATIVE: <10 IU/mL EQUIVOCAL: 10 to 15 IU/mL POSITIVE: >15 IU/mL THIS QUANTITATIVE ASSAY IS CALIBRATED TO THE [employer]'S WO/80 STANDARD. THE LEVEL OF dsDNA AUTOANTIBODY GERERALLY CORRELATES WITH THE LEVEL OF DISEASE ACTIVITY IN SYSTEMIC LUPUS ERYTHMATOSUS 11/28/2024 3:50 PM CDT us Opal Bell APRN LABORATORY Final Result [facility] [address] [place] [address], [place] [phone] [phone] * MISCELLANEOUS LAB TEST (11/28/2024 3:50 PM CDT) TEST NAME: [id number] TICK BORNE DISEASE ANTIBODY PANEL 11/28/2024 3:56 PM CDT [facility] SPECIMEN TYPE SERUM 11/28/2024 3:56 PM CDT [facility] TEST RESULT: Flexitest 1 12/05/2024 6:58 PM CDT [facility] Comment: Flexitest 1 A. phagocytophilum Ab IgG <1:64 <1:64 A. phagocytophilum Ab IgM <1:20 <1:20 Interpretation Antibody Not Detected Comment Anaplasma phagocytophilum is the tick-borne agent causing Human Granulocytic Ehrlichiosis (HGE). HGE is distinct and separate from Human Monocytic Ehrlichiosis (HME), caused by Ehrlichia chaffeensis. Serologic crossreactivity between A. phagocyto- philum and E. chaffeensis is minimal (5-15%). This test was developed and its analytical performance characteristics have been determined by [facility]. It has not been cleared or approved by the U.S. Food and Drug Administration. This assay has been validated pursuant to the CLIA regulations and is used for clinical purposes. TESTS RESULTS--------UNITS--REF. RANGE--- B.DUNCANI(WA1)AB(IgG),IFA <1:256 REFERENCE RANGE: <1:256 INTERPRETIVE CRITERIA: <1:256 Antibody not detected > or = 1:256 Antibody detected Babesia duncani, also known as WA1, has been associated with symptoms similar to those caused by Babesia microti. Little, if any, cross-reactivity occurs between Babesia microti and WA1. This test was developed and its analytical performance characteristics have been determined by [facility]. It has not been cleared or approved by FDA. This assay has been validated pursuant to the CLIA regulations and is used for clinical purposes. Test performed by [facility] [address] [place] [address] Floater Operator: Sarita Freeman MD,PHD,BIANKA Test Reported by [facility], [facility], [address] [place], [place] Feroz Alejo M.D., Ph.D., Director of Laboratories , [facility] [id number] Babesia microti Ab (IgG) <1:64 <1:64 Babesia microti Ab (IgM) <1:20 <1:20 Interpretation Antibody Not Detected Elevated antibody levels to B. microti indicate exposure to the organism. Human babesiosis infection is transmitted by the bite of an infected Ixodes tick or less frequently from transfusion with blood from an infected donor. Definitive diagnosis is made by identifying intraerythrocytic organisms in peripheral blood. In patients with low parasitemia, antibody detection by IFA is recommended. IgG levels greater than or equal to 1:1024 can be detected in acute phase patients with parasites in blood smears. The IFA assay can be used as a seroepidemiologic tool to study the frequency and distribution of B. microti in endemic areas especially in persons with mixed infections also involving Borrelia burgdorferi. This test was developed and its analytical performance characteristics have been determined by [facility] [place], [place]. It has not been cleared or approved by the U.S. Food and Drug Administration. This assay has been validated pursuant to the CLIA regulations and is used for clinical purposes. Lyme Ab Screen <0.90 Index <0.90 Reference ranges: Index Interpretation ----- <0.90 Negative 0.90-1.09 Equivocal >1.09 Positive As recommended by the Food and Drug Administration (FDA), all samples with positive or equivocal results in a Borrelia burgdorferi antibody screen will be tested using a blot method. Positive or equivocal screening test results should not be interpreted as truly positive until verified as such using a supplemental assay (e.g., B. burgdorferi blot). The screening test and/or blot for B. burgdorferi antibodies may be falsely negative in early stages of Lyme disease, including the period when erythema migrans is apparent. The [facility] of [employer], Article 1 of Chapter 5 of Title 32.1, section 32.1-137.06, requires that the following language must be included on every Lyme disease test report issued by a [place] laboratory: Patients undergoing a Lyme disease test should be aware that Lyme disease tests vary and may produce results that are inaccurate. This means a patient may not be able to rely on a positive or negative result. Health care providers are encouraged to discuss Lyme disease test results with the patient for whom the test was ordered. E. chaffeensis Ab IgG <1:64 <1:64 E. chaffeensis Ab IgM <1:20 <1:20 Interpretation Antibody Not Detected Comment Ehrlichia chaffeenis has been identified as the causative agent of Human Monocytic Ehrlichiosis (HME). Infected individuals produce specific antibodies to E. chaffeensis that can be detected by an immuno- fluorescent antibody (IFA) test. Single IgG IFA titers of 1:64 or greater indicate exposure to E. chaffeensis. A four-fold rise in IgG titers between acute and convalescent samples and/or the presence of IgM antibody against E. chaffeensis suggest recent or current infection. This test was developed and its analytical performance characteristics have been determined by [facility] [place], [place], [place]. It has not been cleared or approved by the U.S. Food and Drug Administration. This assay has been validated pursuant to the CLIA regulations and is used for clinical purposes. 11/28/2024 3:50 PM CDT Opal Bell APRN LABORATORY Final Result [facility] [address] [address] [place] [address], [place] [phone] [facility] [address] [place] [address], * TOXOPLASMA, IGM ANTIBODY (11/28/2024 3:50 PM CDT) [facility] TOXOPLASMA IGM <8.00 <8.00 AU/mL 11/30/2024 5:17 PM CDT [facility] Comment: AU/mL Interpretation <8.00 Negative 8.00 - 9.99 Equivocal >9.99 Positive Physicians are advised to interpret the results of anti-Toxoplasma IgM tests with caution, and should not rely on any single test result as the sole determinant in diagnosing recently acquired infection. Test Performed by [facility], [facility], [address] [place], [place] Feroz Alejo M.D., Ph.D., Director of Laboratories , [place] [id number] 11/28/2024 3:50 PM CDT Opal Bell APRN LABORATORY Final Result [facility] [address] [place], [place] , * (ABNORMAL) REGULO VELA VIRUS (11/28/2024 3:50 PM CDT) EBV VCA IGM <36.00 <36.00 U/mL 12/01/2024 5:52 PM CDT [facility] Comment: U/mL Interpretation <36.00 Negative 36.00 - 43.99 Equivocal >43.99 Positive EBV VCA IGG 742.00(H) <18.00 U/mL 12/01/2024 5:52 PM CDT [facility] Comment: U/mL Interpretation <18.00 Negative 18.00 - 21.99 Equivocal >21.99 Positive REGULO BAR NUCLEAR ANTIGEN IGG 152.00(H) <18.00 U/mL 12/01/2024 5:52 PM CDT [facility] Comment: U/mL Interpretation <18.00 Negative 18.00 - 21.99 Equivocal >21.99 Positive INTERPRETATION Past 12/01/2024 5:52 PM CDT [facility] Comment: Suggestive of a past Regulo-Vela Virus infection. In infants, a similiar pattern may occur as a result of a passive maternal transfer of antibody. Test Performed by [facility], [facility], [address] [place] [address] Feroz Alejo M.D., Ph.D., Director of Laboratories , [place] [id number] 11/28/2024 3:50 PM CDT Opal Bell APRN LABORATORY Final Result [facility] [place] [id number] [place], [place] , [place] [phone] * (ABNORMAL) C-REACTIVE PROTEIN (11/28/2024 3:50 PM CDT) C-REACTIVE PROTEIN 1.02(H) <0.30 mg/dL 11/28/2024 4:14 PM CDT [facility] 11/28/2024 3:50 PM CDT Opal Bell APRN LABORATORY Final Result [facility] [address] [place] [address], [place] [phone] * CT CHEST WWO CON (09/17/2024 10:41 AM GROUND WOOD SUPERVISOR) Anatomical Region Laterality Modality Chest Computed Tomogra phy 09/19/2024 8:29 AM GROUND WOOD SUPERVISOR Impressions 09/19/2024 8:37 AM GROUND WOOD SUPERVISOR IMPRESSION: 1. No acute intrathoracic process identified. No source of the patient's symptoms identified. 2. Coronary artery disease. 3. Aortic valve calcification. 4. Hepatic steatosis. 5. Additional chronic/nonurgent findings as described. Ordered By: LUDIVINA MEZA Interpreted By: Yoel Nielsen MD, 09/19/2024 8:29 AM Narrative 09/19/2024 8:37 AM GROUND WOOD SUPERVISOR [place] [facility] [place] [address] Examination: CT of the chest without and [...] Procedure Note Yoel Nielsen MD - 09/19/[address] [place] [address] Examination: CT of the chest without and [...] TISSUE NECK W CON (09/17/2024 10:41 AM GROUND WOOD SUPERVISOR) Anatomical Region Laterality Modality Neck Computed Tomogra phy 09/17/2024 11:3 2 AM GROUND WOOD SUPERVISOR Impressions 09/20/2024 9:20 AM GROUND WOOD SUPERVISOR IMPRESSION: 1. No definite mass lesion or suspicious lymphadenopathy identified in the neck. No overt inflammatory changes or fluid collections identified in the neck soft tissues. 2. Atherosclerosis. The attending radiologist has reviewed the image(s) and agrees with the content of this report. Ordered By: LUDIVINA MEZA Interpreted By: Timo Smart MD, 09/17/2024 11:32 AM Narrative 09/20/2024 9:20 AM GROUND WOOD SUPERVISOR [address] [place] [address] EXAMINATION: CT SOFT TISSUE NECK W CON [...] Procedure Note Lalit Tanner MD - 09/20/[address] [place] [address] EXAMINATION: CT SOFT TISSUE NECK W CON [...] Ordered By: LUDIVINA MEZA Interpreted By: Timo Smatr MD, 09/17/2024 11:32 AM Ludivina Meza MD CT Final Result from Last 3 Months Insurance MEDICARE [facility] COMMERCIAL PAYER Care Teams Locomotive Pipe Fitter Relationship Specialty Start Date End Date Jose Elias Borja DO [address] [facility]NOTE 2] [address] [place] [address] PCP - General INTERNAL MEDICINE 11/28/24 Herve Rosado MD Sayre Scheduling Coordinator CARDIOVASCULAR DISEASE 02/24/16
--- OUTSIDE RECORDS SUMMARY | 2024-12-06 13:11 | XMS_ITS | CONTINUITY OF CARE DOCUMENT ---
Author Name aren younger Address Unknown Organization [facility] Address [address] [place] [address] Phone [phone] Care Team Providers Care Joint Setter Name Role Phone Kiran Julian DO Unavailable JUSTO CHERY MD Unavailable JUSTO CHERY MD Unavailable [phone] PROBLEMS Condition Status Date Provider Notes Cardiovascular screening active Aria Kennedy INSURANCE PROVIDERS Payer name Policy type / Coverage type Elba red green party ID SELF PAY TREATMENT PLAN Date Name CT, Coronary Calcium Score HISTORY OF PROCEDURES Procedure Date Procedure Name Provider Procedure Notes S tatus CT- Coronary CA score Kiran Julian DO completed
--- OUTSIDE RECORDS SUMMARY | 2024-12-06 13:11 | XMS_ITS | Encounter Summary ---
Author Organization [facility] Address [address] [place] [address] Care Team Providers Care Asp Net C Developer Name Role Phone Herve Rosado MD Unavailable Unavailable Sunil Griffith MD Primary Care Provider [phone] Michael Luis MD Primary Care Provider [phone] Iris Pantoja Primary Care Provider Jose Elias Borja DO Primary Care Provider [phone] Encounter Details Date Type Department Care Team (Late st Contact Info) Description 02/25/2016 Abstract [facility] [address] [place] [address] Herve Rosado MD Social History Tobacco Use [...] Rule Out 10/27/2020 10/28/2020 10/30/2020 5:50 AM DENTAL FINANCIAL COORDINATOR COVID-19 Rule Out 02/03/2024 02/03/2024 02/04/2024 5:10 PM CDT Parainfluenza 02/03/2024 02/03/2024 02/13/2024 12: 32 AM CDT documented as of this encounter Care Teams Asp Net C Developer Relationship Specialty Start Date End Date Sunil Griffith MD [address] [place] [address] PCP - General FAMILY PRACTICE 03/15/16 06/11/20 Michael Luis MD [address] [place] [phone] PCP - General FAMILY PRACTICE 06/12/20 09/15/23 Iris Pantoja APNP [address] [place] [address] PCP - General NURSE PRACTITIONER 09/16/23 11/27/24 Jose Elias Borja DO [address] [facility] [address] [place] [address] [place] [address] [id number] PCP - General INTERNAL MEDICINE 11/28/24 Herve Rosado MD [facility] Attendant CARDIOVASCULAR DISEASE 02/24/16 documented as of this encounter
== END 2024-12-06 12:56 | disposition home or self-care (01) ==
PROVIDERS: PCP Nurse Practitioner; Visit Provider Nurse Practitioner
DX: J32.9 Chronic sinusitis, unspecified (principal); J34.89 Other specified disorders of nose and nasal sinuses; R50.9 Fever, unspecified
CPT/HCPCS: 70487; Q9967

== ENCOUNTER 2024-12-11 11:02 | Outpatient (CLI) | payer MEDICARE, SELFPAY ==
--- OUTSIDE RECORDS SUMMARY | 2024-12-11 12:52 | XMS_ITS | CONTINUITY OF CARE DOCUMENT ---
Author Name aren younger Address Unknown Organization [facility] Address [address] [place] [address] Phone [phone] Care Team Providers Care Rn Cardiology Name Role Phone Kiran Julian DO Unavailable JUSTO CHERY MD Unavailable [phone] JUSTO CHERY MD Unavailable PROBLEMS Condition Status Date Provider Notes Cardiovascular screening active Aria Kennedy INSURANCE PROVIDERS Payer name Policy type / Coverage type Welch red libertarian ID SELF PAY TREATMENT PLAN Date Name CT, Coronary Calcium Score HISTORY OF PROCEDURES Procedure Date Procedure Name Provider Procedure Notes S tatus CT- Coronary CA score Kiran Julian DO completed
--- OUTSIDE RECORDS SUMMARY | 2024-12-11 12:52 | XMS_ITS | Encounter Summary ---
Author Organization [facility] Address [facility] [place] [address] Care Team Providers Care Meatcutter Name Role Phone Herve Rosado MD Unavailable Unavailable Michael Luis MD Primary Care Provider [phone] Iris Pantoaj Primary Care Provider Jose Elias Borja DO Primary Care Provider [phone] Encounter Details Date Type Department Care Team (Late st Contact Info) Description 10/22/2020 Hospital Orders Only [facility] [address] [place] [address] John Hernandez MD [address] [place] [address] Social History Tobacco Use Types [...] COVID-19? No / Unsure 10/24/2020 11:18 AM CATERING COOK documented as of this encounter Plan of Treatment Not on file documented as of this encounter Goals Goal Patient Goal Type Associated Problems Recent Progress Patient-Stated? Author HDL > 40 Result Component 22(09/29/2020 9:15 AM CATERING COOK) No Herbert Penaloza RN documented as of this encounter Visit Diagnoses Not on filedocumented in this encounter Additional Health Concerns Infection Onset Date Last Indicated Resolved Time COVID-19 Rule Out 10/27/2020 10/28/2020 10/30/2020 5:50 AM CATERING COOK COVID-19 Rule Out 02/03/2024 02/03/2024 02/04/2024 5:10 PM CDT Parainfluenza 02/03/2024 02/03/2024 02/13/2024 12: 32 AM CDT documented as of this encounter Care Teams Meatcutter Relationship Specialty Start Date End Date Michael Luis MD [address] [place] [address] PCP - General FAMILY PRACTICE 06/12/20 09/15/23 Iris Pantoja APNP [address] [place] [address] PCP - General NURSE PRACTITIONER 09/16/23 11/27/24 Jose Elias Borja DO [address] [facility] [address] [address] PCP - General INTERNAL MEDICINE 11/28/24 Herve Rosado MD [place] [facility]er CARDIOVASCULAR DISEASE 02/24/16 documented as of this encounter
--- OUTSIDE RECORDS SUMMARY | 2024-12-11 12:52 | XMS_ITS | Encounter Summary ---
Author Organization [facility] Address [address] [place] [address] Care Team Providers Care Motel Manager Name Role Phone Herve Rosado MD Unavailable Unavailable Sunil Griffith MD Primary Care Provider [phone] Michael Luis MD Primary Care Provider [phone] Iris Pantoja Primary Care Provider Jose Elias Borja DO Primary Care Provider [phone] Encounter Details Date Type Department Care Team (Late st Contact Info) Description 02/25/2016 Abstract [facility] [address] [place] [address] Herve Rosado MD Social History Tobacco Use [...] Rule Out 10/27/2020 10/28/2020 10/30/2020 5:50 AM LATH TIER COVID-19 Rule Out 02/03/2024 02/03/2024 02/04/2024 5:10 PM CDT Parainfluenza 02/03/2024 02/03/2024 02/13/2024 12: 32 AM CDT documented as of this encounter Care Teams Motel Manager Relationship Specialty Start Date End Date Sunil Griffith MD [address] [place] [address] PCP - General FAMILY PRACTICE 03/15/16 06/11/20 Michael Luis MD [address] [place] [id number] PCP - General FAMILY PRACTICE 06/12/20 09/15/23 Iris Pantoja APNP [address] [place] [address] PCP - General NURSE PRACTITIONER 09/16/23 11/27/24 Jose Elias Borja DO [address] [facility] [address] [place] [id number] PCP - General INTERNAL MEDICINE 11/28/24 Herve Rosado MD [place] Dance Choreographer CARDIOVASCULAR DISEASE 02/24/16 documented as of this encounter
--- OUTSIDE RECORDS SUMMARY | 2024-12-11 12:53 | XMS_ITS | Clinical Summary ---
Author Organization [facility] Address [address] [place] [address] Care Team Providers Care Magnetic Tape Typewriter Operator Name Role Phone Herve Rosado MD Unavailable Unavailable Jose Elias Borja DO Primary Care Provider [phone] Allergies No known active allergies Medications atorvastatin [...] Cap capsule Active neomycin-polymy tereso-dexamethaso ne (MAXITROL) 3.5-01909-8.1 Suspension INSTILL 1 DROP INTO RIGHT EYE [...] - 11/29/2024 11:59 PM CDT Hospital Encounter [place] [address] [place] [address] Opal Bell, GAS COMBUSTION ENGINEER Discharge Disposition: Home or Self Care (Routine Discharge) 11/29/2024 Orders Only [place] [address] [place] [address] Opal Bell GAS COMBUSTION ENGINEER 11/28/2024 3:25 PM CDT - 11/28/2024 11:59 PM CDT Hospital Encounter [address] [place] [address] Opal Bell, GAS COMBUSTION ENGINEER Discharge Disposition: Home or Self Care (Routine Discharge) 11/28/2024 Orders Only [address] [place] [address] Opal Bell, GAS COMBUSTION ENGINEER 11/28/2024 Travel 09/17/2024 10:13 AM CASER SHOE PARTS - 09/17/2024 11:59 PM [employer]ER SHOE [employer]S Hospital Encounter [place] [id number] [place] [address] Ludivina Meza MD Discharge Disposition: Home or Self Care (Routine Discharge) 09/17/2024 Travel from Last 3 Months Immunizations Immunization Administration Dates Next Due MODERNA COVID-19 (RESOLUTION REP JULI MAYKEL), MRNA, LNP-S, PF, 50 MCG/ [...] Comments Blood Pressure 130/96 10/31/2020 8:10 AM [employer]S Pulse 76 10/31/2020 8:10 AM [employer]ER SHOE [employer]S Temperature 36.4 C (97.6 F) 10/31/2020 8:10 AM [employer]S Respiratory Rate 16 10/31/2020 8:10 AM [employer]S Oxygen Saturation 97% 10/31/2020 8:10 AM [employer]S Inhaled Oxygen Concentration - - Weight 91.6 [...] > 40 Result Component 22(09/29/2020 9:15 AM CASER SHOE PARTS) No Herbert Penaloza, underpresser hand Procedure Name Priority Date/Time Associated Diagnosis Comments [...] WWO CON Routine 09/17/2024 10:4 1 AM [employer]ER SHOE PARTS Chronic cough CT SOFT TISSUE NECK W CON Routine 09/17/2024 10:41 AM CASER SHOE PARTS Chronic hoarseness from Last 3 Months Results * (ABNORMAL) CBC W/DIFF AUTOMATED (11/29/2024 9:44 AM CDT) WBC 8.81 4.00 - 10.80 x10'3/uL 11/29/2024 9:48 AM CDT [facility] RBC 6.88(H) 4.50 - 6.10 x10'6/uL 11/29/2024 9:48 AM CDT [facility] HGB 15.9 13.0 - 18.0 G/DL 11/29/2024 9:48 AM CDT [facility] HCT 52.2(H) 37.0 - 52.0 % 11/29/2024 9:48 AM CDT [facility] MCV 75.9(L) 78.0 - 100.0 FL 11/29/2024 9:48 AM CDT [facility] MCH 23.1(L) 27.0 - 31.0 PG 11/29/2024 9:48 AM CDT [facility] MCHC 30.5(L) 33.0 - 36.0 G/DL 11/29/2024 9:48 AM CDT [facility] RDW 20.1(H) 11.5 - 14.5 % 11/29/2024 9:48 AM CDT [facility] PLT 241 150 - 350 x10'3/uL 11/29/2024 9:48 AM CDT [facility] MPV 9.6 7.4 - 10.4 FL 11/29/2024 9:48 AM CDT [facility] CBC COMMENT NORMAL REFERENCE RANGE NOT ESTABLISHED FOR THE PROPORTIONAL LEUKOCYTE DIFFERENTIAL. 11/29/2024 9:48 AM CDT [facility] NEUTROPHILS % 71.1 % 11/29/2024 9:48 AM CDT [facility] LYMPHOCYTES % 16.5 % 11/29/2024 9:48 AM CDT [facility] MONOCYTES % 11.6 % 11/29/2024 9:48 AM CDT [facility] EOSINOPHILS % 0.1 % 11/29/2024 9:48 AM CDT [facility] BASOPHILS % 0.1 % 11/29/2024 9:48 AM CDT [facility] IMMATURE GRANS % 0.6 % 11/30/19 9:48 AM CDT [facility] NRBC % 0.0 % 11/29/2024 9:48 AM CDT [facility] ABS. NEUTROPHILS 6.27 1.60 - 8.30 x10'3/uL 11/29/2024 9:48 AM CDT [facility] ABS. LYMPHOCYTES 1.45 0.80 - 4.70 x10'3/uL 11/29/2024 9:48 AM CDT [facility] ABS. MONOCYTES 1.02 0.00 - 1.50 x10'3/uL 11/29/2024 9:48 AM CDT [facility] ABS. EOSINOPHILS 0.01 0.00 - 0.40 x10'3/uL 11/29/2024 9:48 AM CDT [facility] ABS. BASOPHILS 0.01 0.00 - 0.20 x10'3/uL 11/29/2024 9:48 AM CDT [facility] ABS. IMMATURE GRANULOCYTES 0.05(H) 0.00 - 0.03 x10'3/uL 11/29/2024 9:48 AM CDT [facility] ABS. NUCLEATED RBC'S 0.00 0.00 - 0.01 x10'3/uL 11/29/2024 9:48 AM CDT [facility] 11/29/2024 9:44 AM CDT us Opal Bell APRN LABORATORY Final Result [facility] [address] [place] [address], [place] [phone] * ANTINUCLEAR ANTIBODY [place] RFX (11/28/2024 3:50 PM CDT) TERRI 0.4 12/03/2024 11:47 AM CDT [facility] Comment: NEGATIVE: <0.7 RATIO TERRI PROFILE AND TITER NOT PERFORMED THE TERRI SCREEN TESTS FOR THE FOLLOWING ANTIBODIES BY EIA: SSA1 (RO), SSB1 (LA), ALAV, SCL70, JO1, CENTROMERE, SPEED READING TEACHER HISTONE MUST BE ORDERED SEPARATELY DNA (DS) ANTIBODY 2.5 IU/ML 025 11:47 AM CDT [facility] Comment: NEGATIVE: <10 IU/mL EQUIVOCAL: 10 to 15 IU/mL POSITIVE: >15 IU/mL THIS QUANTITATIVE ASSAY IS CALIBRATED TO THE [employer]'S WO/80 STANDARD. THE LEVEL OF dsDNA AUTOANTIBODY GERERALLY CORRELATES WITH THE LEVEL OF DISEASE ACTIVITY IN SYSTEMIC LUPUS ERYTHMATOSUS 11/28/2024 3:50 PM CDT us Opal Bell APRN LABORATORY Final Result [facility] [address] [place] [address], [place] [phone] [id number] * MISCELLANEOUS LAB TEST (11/28/2024 3:50 PM CDT) TEST NAME: [id number] TICK [place]NE DISEASE ANTIBODY PANEL 11/28/2024 3:56 PM CDT [facility] SPECIMEN TYPE SERUM 11/28/2024 3:56 PM CDT [facility] TEST RESULT: Flexitest 1 12/05/2024 6:58 PM CDT [facility] Comment: Flexitest 1 A. phagocytophilum [...] analytical performance characteristics have been determined by [place], [place]. It has not been cleared or [...] analytical performance characteristics have been determined by [facility]. It has not been cleared or approved by FDA. This assay has been validated pursuant to the CLIA regulations and is used for clinical purposes. Test performed by [facility] [address] [place] [address] Marble Setter: Sarita Freeman MD,PHD,BIANKA Test Reported by [facility], [facility], [address] [place], [place] Feroz Alejo M.D., Ph.D., Director of Laboratories , [facility] [id number] Babesia microti Ab (IgG) <1:64 <1:64 Babesia [...] analytical performance characteristics have been determined by [facility] [place], [place]. It has not been cleared or [...] period when erythema migrans is apparent. [facility] [place], Article 1 of Chapter 5 of Title 32.1, section 32.1-137.06, requires that the following language must be included on every Lyme disease test report issued by a [place] laboratory: Patients undergoing a Lyme disease test [...] analytical performance characteristics have been determined by [facility] [place], [place], [place]. It has not been cleared or approved by the U.S. Food and Drug Administration. This assay has been validated pursuant to the CLIA regulations and is used for clinical purposes. 11/28/2024 3:50 PM CDT Opal Bell APRN LABORATORY Final Result [facility] [address] [address] [place] [address], [place] [phone] [facility] [address] [place] [address], * TOXOPLASMA, IGM ANTIBODY (11/28/2024 3:50 PM CDT) [facility] TOXOPLASMA IGM <8.00 <8.00 AU/mL 11/30/2024 5:17 PM CDT [facility] [place] Comment: AU/mL Interpretation <8.00 Negative 8.00 - 9.99 Equivocal >9.99 Positive Physicians are advised to interpret the results of anti-Toxoplasma IgM tests with caution, and should not rely on any single test result as the sole determinant in diagnosing recently acquired infection. Test Performed by [facility], [facility], [address] [place], [place] Feroz Alejo M.D., Ph.D., Director of Laboratories , [place] [id number] 11/28/2024 3:50 PM CDT Opal Bell APRN LABORATORY Final Result [facility] [address] [place], [place] , * (ABNORMAL) REGULO VELA VIRUS (11/28/2024 3:50 PM CDT) EBV VCA IGM <36.00 <36.00 U/mL 12/01/2024 5:52 PM CDT [facility] [place] Comment: U/mL Interpretation <36.00 Negative 36.00 - 43.99 Equivocal >43.99 Positive EBV VCA IGG 742.00(H) <18.00 U/mL 12/01/2024 5:52 PM CDT [facility] [place] Comment: U/mL Interpretation <18.00 Negative 18.00 - 21.99 Equivocal >21.99 Positive REGULO BAR NUCLEAR ANTIGEN IGG 152.00(H) <18.00 U/mL 12/01/2024 5:52 PM CDT [facility] [place] Comment: U/mL Interpretation <18.00 Negative 18.00 - 21.99 Equivocal >21.99 Positive INTERPRETATION Past 12/01/2024 5:52 PM CDT [facility] [place] Comment: Suggestive of a past Regulo-Vela Virus infection. In infants, a similiar pattern may occur as a result of a passive maternal transfer of antibody. Test Performed by [facility], [facility], [address] [place] [address] Feroz Alejo M.D., Ph.D., Director of Laboratories , [place] [id number] 11/28/2024 3:50 PM CDT Opal Bell APRN LABORATORY Final Result [facility] [place] [id number] [place], [place] , [place] [phone] * (ABNORMAL) C-REACTIVE PROTEIN (11/28/2024 3:50 PM CDT) C-REACTIVE PROTEIN 1.02(H) <0.30 mg/dL 11/28/2024 4:14 PM CDT [facility] 11/28/2024 3:50 PM CDT Opal Bell APRN LABORATORY Final Result [facility] [address] [place] [address], [place] [phone] * CT CHEST WWO CON (09/17/2024 10:41 AM [employer]) Anatomical Region Laterality Modality Chest Computed Tomogra phy 09/19/2024 8:29 AM [employer] Impressions 09/19/2024 8:37 AM [employer] IMPRESSION: 1. No acute intrathoracic process identified. No source of the patient's symptoms identified. 2. Coronary artery disease. 3. Aortic valve calcification. 4. Hepatic steatosis. 5. Additional chronic/nonurgent findings as described. Ordered By: LUDIVINA MEZA Interpreted By: Yoel Nielsen MD, 09/19/2024 8:29 AM Narrative 09/19/2024 8:37 AM [employer] [place] [id number] [facility] [place] [address] Examination: CT of the chest without and [...] Procedure Note Yoel Nielsen MD - 09/19/[address] [place] [address] Examination: CT of the chest without and [...] TISSUE NECK W CON (09/17/2024 10:41 AM [employer]S) Anatomical Region Laterality Modality Neck Computed Tomogra phy 09/17/2024 11:3 2 AM [employer] Impressions 09/20/2024 9:20 AM [employer] IMPRESSION: 1. No definite mass lesion or suspicious lymphadenopathy identified in the neck. No overt inflammatory changes or fluid collections identified in the neck soft tissues. 2. Atherosclerosis. The attending radiologist has reviewed the image(s) and agrees with the content of this report. Ordered By: LUDIVINA MEZA Interpreted By: Timo Smart MD, 09/17/2024 11:32 AM Narrative 09/20/2024 9:20 AM [employer] [address] [place] [address] EXAMINATION: CT SOFT TISSUE NECK W CON [...] Procedure Note Lalit Tanner MD - 09/20/[address] [place] [address] EXAMINATION: CT SOFT TISSUE NECK W CON [...] Result from Last 3 Months Insurance MEDICARE [facility] [employer] [facility] Care Teams Magnetic Tape Typewriter Operator Relationship Specialty Start Date End Date Jose Elias Borja DO [address] [facility] [address] [place] [address] PCP - General INTERNAL MEDICINE 11/28/24 Herve Rosado MD [place] Assistant Passenger Locomotive Engineer CARDIOVASCULAR DISEASE 02/24/16
--- OUTSIDE RECORDS SUMMARY | 2024-12-11 12:53 | XMS_ITS | Referral Summary ---
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
--- OUTSIDE RECORDS SUMMARY | 2024-12-11 12:53 | XMS_ITS | Clinical Summary ---
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
--- OUTSIDE RECORDS SUMMARY | 2024-12-11 12:53 | XMS_ITS | Encounter Summary ---
Author Organization [facility] Address [facility] [place] [address] Care Team Providers Care Business Administration Teacher Name Role Phone Herve Rosado MD Unavailable Unavailable Sunil Griffith MD Primary Care Provider [phone] Michael Luis MD Primary Care Provider [phone] Iris Pantoja Primary Care Provider [phone] Jose Elias Borja DO Primary Care Provider [phone] Encounter Details Date Type Department Care Team (Late st Contact Info) Description 01/27/2019 Abstract [facility] [address] [place] [address] , Generic Conversion, Social History [...] > 40 Result Component 22(09/29/2020 9:15 AM FOREIGN EXCHANGE SERVICES MANAGER) No Herbert Penaloza, RN documented as of this encounter Visit Diagnoses Not on filedocumented in this encounter Additional Health Concerns Infection Onset Date Last Indicated Resolved Time COVID-19 Rule Out 10/27/2020 10/28/2020 10/30/2020 5:50 AM FOREIGN EXCHANGE SERVICES MANAGER COVID-19 Rule Out 02/03/2024 02/03/2024 02/04/2024 5:10 PM CDT Parainfluenza 02/03/2024 02/03/2024 02/13/2024 12: 32 AM CDT documented as of this encounter Care Teams Business Administration Teacher Relationship Specialty Start Date End Date Sunil Griffith MD [address] [place] [address] PCP - General FAMILY PRACTICE 03/15/16 06/11/20 Michael Luis MD [address] [place] [address] PCP - General FAMILY PRACTICE 06/12/20 09/15/23 Iris Pantoja APNP [address] [place] [address] PCP - General NURSE PRACTITIONER 09/16/23 11/27/24 Jos eElias Borja DO [address] [facility] [address] [place] [id number] PCP - General INTERNAL MEDICINE 11/28/24 Herve Rosado MD [place] Filler And Trimmer CARDIOVASCULAR DISEASE 02/24/16 documented as of this encounter
[2024-12-11 14:38] LABS: Rheumatoid Factor < 12.0 IU/ML (<12)
[2024-12-11 15:06] LABS: Hepatitis B Surface Antigen Negative (Negative)
[2024-12-11 15:23] LABS: Hepatitis C Virus Antibody Negative (Negative)
[2024-12-13 04:33] LABS: Myeloperoxidase Ab 17.6 AI
[2024-12-14 21:13] LABS: Lyme AB Screen <0.90 INDEX
[2024-12-15 20:58] LABS: Babesia microti AB IgG <1:64 titer; Babesia microti AB IgM <1:20 titer
== END 2024-12-11 11:03 | disposition home or self-care (01) ==
PROVIDERS: PCP Nurse Practitioner; Visit Provider Nurse Practitioner
DX: R50.9 Fever, unspecified (principal); R05.1 Acute cough
CPT/HCPCS: 36415; 86036; 86430; 86803; 87340

== ENCOUNTER 2024-12-27 11:03 | Outpatient (CLI) | payer MEDICARE, SELFPAY ==
--- OUTSIDE RECORDS SUMMARY | 2024-12-27 11:16 | XMS_ITS | CONTINUITY OF CARE DOCUMENT ---
Author Name aren younger Address Unknown Organization [facility] Address [address] [facility] [address] [place] [address] Phone [phone] Care Team Providers Care Brewery Representative Name Role Phone Kiran Julian DO Unavailable JUSTO CHERY MD Unavailable [phone] JUSTO CHERY MD Unavailable [phone] PROBLEMS Condition Status Date Provider Notes Cardiovascular screening active Aria Kennedy INSURANCE PROVIDERS Payer name Policy type / Coverage type [employer] red democrat ID SELF PAY TREATMENT PLAN Date Name CT, Coronary Calcium Score HISTORY OF PROCEDURES Procedure Date Procedure Name Provider Procedure Notes S tatus CT- Coronary CA score Kiran Julian DO completed
--- OUTSIDE RECORDS SUMMARY | 2024-12-27 11:17 | XMS_ITS | Referral Summary ---
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 Months Allergies No known active allergies Medications omeprazole [...] 10/21/2021 Assessment & Plan (10/21/2021 12:17 PM 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): 61yoM with hx HTN, HLD, ED referred [...] on file Legal Sex Male 9:57 AM 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 Gender Identity Not on file Sexual Orientation Not on file 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 73 m2 Comment: Interpretive Data Reference Interval Normal >/= 90 mL/min/1.73m2 Mildly decreased* 60 - 89 mL/min/1.73m2 Mildly to moderately decreased 45 - 59 mL/min/1.73m2 Moderately to severely decreased 30 - 44 mL/min/1.73m2 Severely decreased 15 - 29 mL/min/1.73m2 Kidney Failure < 15 mL/min/1.73m2 *Relative to young adult level Estimated glomerular filtration rate is determined by the 2020 CKD-EPI equation recommended by the National Kidney Foundation (A Unifying Approach to GFR Estimation: Recommendations of the NKF-ASK Task Force on Reassessing the Inclusion of Race in Diagnosing Kidney Disease, JASN 2020). The CKD-EPI equation should not be used for patients with unstable renal function and has not been validated in children and those over 70. Current interpretive data was last reviewed 2021. Testing performed by: [address] [address] Blood 12/17/2024 8:06 AM CDT 12/17/2024 8:10 AM CDT us Valerie Orozco NP LAB BLOOD ORDERABLES F inal Result [facility] [address] [facility] Department [place] [address] * (ABNORMAL) Differential, auto (12/17/2024 8:06 AM CDT) Neutrophil abs 6.01 1.50 - 6.50 K/cumm Comment:Testing performed by : [address] [address] Imm gran abs 0.07 0.00 - 0.10 K/cumm [facility] Comment:Testing performed by : [address] [address] Lymphocyte abs 1.31 0.80 - 3.30 K/cumm [facility] Comment:Testing performed by : [address], [place]., [address] Monocyte abs 0.93(H) 0.20 - 0.80 K/cumm [facility] Comment:Testing performed by : [address], [place]., [address] Eosinophil abs 0.01 0.00 - 0.50 K/cumm [facility] Comment:Testing performed by : [address] [address] Basophil abs 0.01 0.00 - 0.10 K/cumm [facility] Comment:Testing performed by : [address] [address] Neutrophil pct 72.1 % [facility] Comment: Interpretive Data Percent cell count reference ranges are not reported, since discordance with absolute values may lead to misinterpretation of CBC data. Current Interpretive Data was last revised on 2017. Testing performed by: [address] [address] Imm gran pct 0.8 % [facility] Comment: Interpretive Data Percent cell count reference ranges are not reported, since discordance with absolute values may lead to misinterpretation of CBC data. Current Interpretive Data was last revised on 2017. Testing performed by: [address] [address] Lymphocyte pct 15.7 % [facility] Comment: Interpretive Data Percent cell count reference ranges are not reported, since discordance with absolute values may lead to misinterpretation of CBC data. Current Interpretive Data was last revised on 2017. Testing performed by: [address] [address] Monocyte pct 11.2 % [facility] Comment: Interpretive Data Percent cell count reference ranges are not reported, since discordance with absolute values may lead to misinterpretation of CBC data. Current Interpretive Data was last revised on 2017. Testing performed by: [address] [address] Eosinophil pct 0.1 % [facility] Comment: Interpretive Data Percent cell count reference ranges are not reported, since discordance with absolute values may lead to misinterpretation of CBC data. Current Interpretive Data was last revised on 2017. Testing performed by: [address] [address] Basophil pct 0.1 % [facility] Comment: Interpretive Data Percent cell count reference ranges are not reported, since discordance with absolute values may lead to misinterpretation of CBC data. Current Interpretive Data was last revised on 2017. Testing performed by: [address] [address] Blood 12/17/2024 8:06 AM CDT 12/17/2024 8:10 AM CDT Valerie Orozco DIRECTOR PARK LAB BLOOD ORDERABLES F inal Result [facility] [address] [facility] Department [place] [address] * (ABNORMAL) CBC with auto differential (12/17/2024 8:06 AM CDT) WBC 8.34 3.80 - 9.90 K/cumm Comment:Testing performed by : [address] [address] Hgb 15.8 13.0 - 17.5 g/dL [facility] Comment:Testing performed by : [address] [address] Hct 50.9(H) 38.9 - 50.3 % [facility] Comment:Testing performed by : [address] [address] Plt 256 150 - 400 K/cumm [facility] Comment:Testing performed by : [address] [address] MPV 10.1 9.1 - 12.3 fL [facility] Comment:Testing performed by : [address] [address] RBC 6.83(H) 4.30 - 5.80 M/cumm [facility] Comment:Testing performed by : [address] [address] MCV 74.5(L) 81.3 - 96.4 fL [facility] Comment:Testing performed by : [address] [address] MCH 23.1(L) 27.1 - 33.3 pg [facility] Comment:Testing performed by : [address] [address] MCHC 31.0(L) 32.3 - 35.7 g/dL [facility] Comment:Testing performed by : [address] [address] RDW CV 20.1(H) 11.1 - 14.9 % [facility] Comment:Testing performed by : [address] [address] RDW SD 49.7(H) 35.7 - 48.1 fL [facility] Comment:Testing performed by : [address] [address] NRBC abs 0.00 0.00 - 0.01 K/cumm [facility] Comment:Testing performed by : [address] [address] ANC Prelim 6.01 1.50 - 6.50 K/cumm [facility] Comment: Interpretive Data The rapid ANC is a preliminary automated count and may vary from the final ANC (Neut Abs) reported in the WBC differential that follows. Current interpretive data was last revised 2024. Testing performed by: [address] [address] Blood 12/17/2024 8:06 AM CDT 12/17/2024 8:10 AM CDT Valerie Orozco NP LAB BLOOD ORDERABLES F inal Result [facility] [address] [facility] Department [place] [address] * Lactate dehydrogenase (LD) (12/17/2024 8:06 AM CDT) Pathologist [facility] Lactate dehydrogenase (LDH) 157 100 - 250 Units/L Comment:Testing performed by : [address] [address] Blood 12/17/2024 8:06 AM CDT 12/17/2024 8:10 AM CDT Valerie Orozco NP LAB BLOOD ORDERABLES F inal Result [facility] [address] [facility] Department [place] [address] * Comprehensive metabolic panel (12/17/2024 8:06 AM CDT) [facility] Sodium 139 135 - 145 mmol/L Comment:Testing performed by : [address] [address] Potassium, pl 4.3 3.3 - 4.9 mmol/L [facility] Comment:Testing performed by : [address] [address] Chloride 103 97 - 110 mmol/L [facility] Comment:Testing performed by : [address] [address] CO2 26 22 - 32 mmol/L [facility] Comment:Testing performed by : [address] [address] Anion gap 10 2 - 15 mmol/L [facility] Comment:Testing performed by : [address] [address] BUN 14 6 - 25 mg/dL [facility] Comment:Testing performed by : [address] [address] Creatinine 1.00 0.80 - 1.30 mg/dL [facility] Comment:Testing performed by : [address] [address] Glucose 106 70 - 199 mg/dL [facility] Comment: Interpretive Data Fasting glucose >/= 126 mg/dl is diagnostic for diabetes. Fasting is defined as no caloric intake for at least 8 hours. Fasting glucose between 100 mg/dl to 125 mg/dl is diagnostic of prediabetes. In a patient with classic symptoms of hyperglycemia or hyperglycemic crisis, a random glucose >/= 200 mg/dl is diagnostic for diabetes. In the absence of unequivocal hyperglycemia, results should be confirmed by repeat testing. The classification and Diagnosis of Diabetes Diabetes Care 2021; 46: S19-S40. Current interpretive data was last revised 2022. Testing performed by: [address] [address] Calcium 9.7 8.5 - 10.3 mg/dL [facility] Comment:Testing performed by : [address] [address] Bilirubin, total 0.5 0.1 - 1.2 mg/dL [facility] Comment:Testing performed by : [address] [address] Protein, pl 7.4 6.5 - 8.5 g/dL [facility] Comment:Testing performed by : [address] [address] Albumin 4.6 3.5 - 5.0 g/dL [facility] Comment:Testing performed by : [address] [address] Alk phos 68 40 - 130 Units/L [facility] Comment:Testing performed by : [address] [address] ALT 37 7 - 55 Units/L [facility] Comment:Testing performed by : [address] [address] AST 35 10 - 50 Units/L [facility] Comment:Testing performed by : [address] [address] Blood 12/17/2024 8:06 AM CDT 12/17/2024 8:10 AM CDT Valerie Orozco NP LAB BLOOD ORDERABLES F inal Result [facility] [address] [facility] [place] [address] from Last 3 Months Insurance MEDICARE [facility] CLAIMS OFFICE [facility] MEDICARE SUPPLEMENT [facility]S [facility] Care Teams Magnaflux Operator Relationship Specialty Start Date End Date Iris Pantoja NP [address] [place] [address] PCP - General Family Medicine 06/18/24 Makeda North MD [address] IM BONE MARROW TRANSPLANT, [address] [place] [address] Medical Oncologist/Planning Associate Hematology 06/24/23
--- OUTSIDE RECORDS SUMMARY | 2024-12-27 11:17 | XMS_ITS | Encounter Summary ---
Author Organization [facility] Address [address] [place] [address] Care Team Providers Care Loan Documents Closer Name Role Phone Herve Rosado MD Unavailable Unavailable Sunil Griffith MD Primary Care Provider [phone] Michael Luis MD Primary Care Provider [phone] Iris Pantoja Primary Care Provider [phone] Jose Elias Borja DO Primary Care Provider [phone] Encounter Details Date Type Department Care Team (Late st Contact Info) Description 02/25/2016 Abstract [facility] [address] [place] [address] Herve Rosado MD Social History Tobacco Use Types Packs/Day Years Used Date Smoking Tobacco: Never Assessed Sex and Gender Information Value Date Recorded Sex Assigned at Male 12/12/2024 10:03 AM CDT Legal Sex Male 3:57 PM CDT Gender Identity Not on file Sexual Orientation Not on file documented as of this encounter Plan of Treatment Not on file documented as of this encounter Visit Diagnoses Not on filedocumented in this encounter Additional Health Concerns Infection Onset Date Last Indicated Resolved Time COVID-19 Rule Out 10/27/2020 10/28/2020 10/30/2020 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 COVID-19 Rule Out 02/03/2024 02/03/2024 02/04/2024 5:10 PM CDT Parainfluenza 02/03/2024 02/03/2024 02/13/2024 12: 32 AM CDT documented as of this encounter Care Teams Loan Documents Closer Relationship Specialty Start Date End Date Sunil Griffith MD [address] [place] [phone] PCP - General FAMILY PRACTICE 03/15/16 06/11/20 Michael Luis MD [address] [place] [address] PCP - General FAMILY PRACTICE 06/12/20 09/15/23 Iris Pantoja APNP [address] [place] [id number] PCP - General NURSE PRACTITIONER 09/16/23 11/27/24 Jose Elias Borja DO [address] [place] [address] [place] [id number] PCP - General INTERNAL MEDICINE 11/28/24 Herve Rosado MD Rampart Wire Stockkeeper CARDIOVASCULAR DISEASE 02/24/16 documented as of this encounter
--- OUTSIDE RECORDS SUMMARY | 2024-12-27 11:17 | XMS_ITS | Clinical Summary ---
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 MARINE ENGINEER): 61yoM with hx HTN, HLD, ED [...] due to CTL overwear in past, OD Encounters Date Type Department Care Team Description 12/19/2024 Telephone [facility] [address] [place] [address] [address] [place] [address] Gia Napier RN 12/17/2024 8:15 AM CDT Lab [facility] at [address] [address] Polycythemia, secondary from Last 3 Months Immunizations Immunization Administration Dates Next Due Influenza, [...] on file Legal Sex Male 9:57 AM CONSULTING MARINE ENGINEER Gender Identity Not on file Sexual Orientation Not on file 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 Testing performed by: [address] [address] Blood 12/17/2024 8:06 AM CDT 12/17/2024 8:10 AM CDT Valerie Orozco NP LAB BLOOD ORDERABLES F inal Result [facility] [address] [facility] Department [place] [address] * (ABNORMAL) Differential, auto (12/17/2024 8:06 AM CDT) Neutrophil abs 6.01 1.50 - 6.50 K/cumm Comment:Testing performed by : [address] [address] Imm gran abs 0.07 0.00 - 0.10 K/cumm [facility] Comment:Testing performed by : [address] [address] Lymphocyte abs 1.31 0.80 - 3.30 K/cumm [facility] Comment:Testing performed by : [address] [address] Monocyte abs 0.93(H) 0.20 - 0.80 K/cumm [facility] Comment:Testing performed by : [address] [address] Eosinophil abs 0.01 0.00 - 0.50 K/cumm [facility] Comment:Testing performed by : [address] [address] Basophil abs 0.01 0.00 - 0.10 K/cumm [facility] Comment:Testing performed by : [address] [address] Neutrophil pct 72.1 % [facility] Comment: Interpretive Data Percent cell count reference ranges are not reported, since discordance with absolute values may lead to misinterpretation of CBC data. Current Interpretive Data was last revised on 2017. Testing performed by: [address] [address] Imm gran pct 0.8 % [facility] Comment: Interpretive Data Percent cell count reference ranges are not reported, since discordance with absolute values may lead to misinterpretation of CBC data. Current Interpretive Data was last revised on 2017. Testing performed by: [address] [address] Lymphocyte pct 15.7 % [facility] Comment: Interpretive Data Percent cell count reference ranges are not reported, since discordance with absolute values may lead to misinterpretation of CBC data. Current Interpretive Data was last revised on 2017. Testing performed by: [address] [address] Monocyte pct 11.2 % [facility] Comment: Interpretive Data Percent cell count reference ranges are not reported, since discordance with absolute values may lead to misinterpretation of CBC data. Current Interpretive Data was last revised on 2017. Testing performed by: [address] [address] Eosinophil pct 0.1 % [facility] Comment: Interpretive Data Percent cell count reference ranges are not reported, since discordance with absolute values may lead to misinterpretation of CBC data. Current Interpretive Data was last revised on 2017. Testing performed by: [address] [address] Basophil pct 0.1 % [facility] Comment: Interpretive Data Percent cell count reference ranges are not reported, since discordance with absolute values may lead to misinterpretation of CBC data. Current Interpretive Data was last revised on 2017. Testing performed by: [address] [address] Blood 12/17/2024 8:06 AM CDT 12/17/2024 8:10 AM CDT us Valerie Orozco NP LAB BLOOD ORDERABLES F inal Result [facility] [address] [facility] [place] [address] * (ABNORMAL) CBC with auto differential (12/17/2024 8:06 AM CDT) [facility] WBC 8.34 3.80 - 9.90 K/cumm Comment:Testing performed by : [address], [address] Hgb 15.8 13.0 - 17.5 g/dL [facility] Comment:Testing performed by : [address] [address] Hct 50.9(H) 38.9 - 50.3 % [facility] Comment:Testing performed by : [address], [address] Plt 256 150 - 400 K/cumm [facility] Comment:Testing performed by : [address], [address] MPV 10.1 9.1 - 12.3 fL [facility] Comment:Testing performed by : [address], [address] RBC 6.83(H) 4.30 - 5.80 M/cumm [facility] Comment:Testing performed by : [address] [address] MCV 74.5(L) 81.3 - 96.4 fL [facility] Comment:Testing performed by : [address] [address] MCH 23.1(L) 27.1 - 33.3 pg [facility] Comment:Testing performed by : [address], [address] MCHC 31.0(L) 32.3 - 35.7 g/dL [facility] Comment:Testing performed by : [address], [address] RDW CV 20.1(H) 11.1 - 14.9 % [facility] Comment:Testing performed by : [address], [address] RDW SD 49.7(H) 35.7 - 48.1 fL [facility] Comment:Testing performed by : [address], [address] NRBC abs 0.00 0.00 - 0.01 K/cumm [facility] Comment:Testing performed by : [address] [address] ANC Prelim 6.01 1.50 - 6.50 K/cumm [facility] Comment: Interpretive Data The rapid ANC is a preliminary automated count and may vary from the final ANC (Neut Abs) reported in the WBC differential that follows. Current interpretive data was last revised 2024. Testing performed by: [address] [address] Blood 12/17/2024 8:06 AM CDT 12/17/2024 8:10 AM CDT Valerie Orozco NP LAB BLOOD ORDERABLES F inal Result Performing Organization Address [facility] Co de Phone Number [address] [place] [address] * Lactate dehydrogenase (LD) (12/17/2024 8:06 AM CDT) Lactate dehydrogenase (LDH) 157 100 - 250 Units/L Comment:Testing performed by : [address] [address] Blood 12/17/2024 8:06 AM CDT 12/17/2024 8:10 AM CDT Valerie Orozco NP LAB BLOOD ORDERABLES F inal Result Performing Organization Address [facility] Co de Phone Number [address] [employer] [place] [address] * Comprehensive metabolic panel (12/17/2024 8:06 AM CDT) Sodium 139 135 - 145 mmol/L Comment:Testing performed by : [address] [address] Potassium, pl 4.3 3.3 - 4.9 mmol/L [facility] Comment:Testing performed by : [address] [address] Chloride 103 97 - 110 mmol/L [facility] Comment:Testing performed by : [address], [place]., [address] CO2 26 22 - 32 mmol/L [facility] Comment:Testing performed by : [address], [place]., [address] Anion gap 10 2 - 15 mmol/L [facility] Comment:Testing performed by : [address] [address] BUN 14 6 - 25 mg/dL [facility] Comment:Testing performed by : [address], [place]., [address] Creatinine 1.00 0.80 - 1.30 mg/dL [facility] Comment:Testing performed by : [address], [place]., [address] Glucose 106 70 - 199 mg/dL [facility] [...] classification and Diagnosis of Diabetes Diabetes Care 202; 46: S19-S40. Current interpretive data was last revised 2022. Testing performed by: [address] [address] Calcium 9.7 8.5 - 10.3 mg/dL [facility] Comment:Testing performed by : [address] [address] Bilirubin, total 0.5 0.1 - 1.2 mg/dL [facility] Comment:Testing performed by : [address] [address] Protein, pl 7.4 6.5 - 8.5 g/dL [facility] Comment:Testing performed by : [address] [address] Albumin 4.6 3.5 - 5.0 g/dL [facility] Comment:Testing performed by : [facility], [address] [place] [address]., [address] Alk phos 68 40 - 130 Units/L [facility] Comment:Testing performed by : [address] [address] ALT 37 7 - 55 Units/L [facility] Comment:Testing performed by : [address] [address] AST 35 10 - 50 Units/L [facility] Comment:Testing performed by : [address] [address] Blood 12/17/2024 8:06 AM CDT 12/17/2024 8:10 AM CDT us Valerie Orozco NP LAB BLOOD ORDERABLES F inal Result [facility] [address] [facility] [place] [address] from Last 3 Months [facility] MEDICARE SUPPLEMENT MEDICARE [employer] CLAIMS OFFICE Care Teams Operations/Dispatch Relationship Specialty Start Date End Date Iris Pantoja NP [address] [place] [address] PCP - General Family Medicine 06/18/24 Makeda North MD [address] IM BONE MARROW TRANSPLANT, [address] [place] [address] Medical Oncologist/Electric Range Servicer Hematology 06/24/23
--- OUTSIDE RECORDS SUMMARY | 2024-12-27 11:17 | XMS_ITS | Encounter Summary ---
Author Organization [facility] Address [facility] [place] [address] Care Team Providers Care Housekeeper Manager Name Role Phone Herve Rosado MD Unavailable Unavailable Michael Luis MD Primary Care Provider [phone] Iris Pantoja Primary Care Provider [phone] Jose Elias Borja DO Primary Care Provider Encounter Details Date Type Department Care Team (Late st Contact Info) Description 10/22/2020 Hospital Orders Only [facility] [address] [place] [address] John Hernandez MD [address] [place] [address] Social History Tobacco Use Types [...] COVID-19? 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 Author HDL > 40 Result Component 22(09/29/2020 9:15 AM COLLEGE TUTOR) No Herbert Penaloza RN documented as of this encounter Visit Diagnoses Not on filedocumented in this encounter Additional Health Concerns Infection Onset Date Last Indicated Resolved Time COVID-19 Rule Out 10/27/2020 10/28/2020 10/30/2020 5:50 AM COLLEGE TUTOR COVID-19 Rule Out 02/03/2024 02/03/2024 02/04/2024 5:10 PM CDT Parainfluenza 02/03/2024 02/03/2024 02/13/2024 12: 32 AM CDT documented as of this encounter Care Teams Housekeeper Manager Relationship Specialty Start Date End Date Michael Luis MD [address] [place] [address] PCP - General FAMILY PRACTICE 06/12/20 09/15/23 Iris Pantoja APNP [address] [place] [address] PCP - General NURSE PRACTITIONER 09/16/23 11/27/24 Jose Elias Borja DO [address] [facility] [address] [address] PCP - General INTERNAL MEDICINE 11/28/24 Herve Rosado MD [place] Bean Picker Machine Operator CARDIOVASCULAR DISEASE 02/24/16 documented as of this encounter
--- OUTSIDE RECORDS SUMMARY | 2024-12-27 11:17 | XMS_ITS | Clinical Summary ---
Author Organization [facility] Address [address] [place] [address] Care Team Providers Care Semiconductor Processing Technician Name Role Phone Herve Rosado MD Unavailable Unavailable Jose Elias Borja DO Primary Care Provider [phone] Allergies No known active allergies Medications atorvastatin [...] Cap capsule Active neomycin-polymy tereso-dexamethaso ne (MAXITROL) 3.5-10190-6.1 Suspension INSTILL 1 DROP INTO RIGHT EYE [...] Encounters Date Type Department Care Team Description 12/12/2024 10:03 AM CDT - 12/12/2024 11:59 PM CDT Hospital Encounter [facility] [address] [place] [address] Opal Bell, [facility] Discharge Disposition: Home or Self Care (Routine Discharge) 12/12/2024 Travel 11/29/2024 9:24 AM CDT - 11/29/2024 11:59 PM CDT Hospital Encounter [facility] [address] [place] [address] Opal Bell, [facility] [employer] Discharge Disposition: Home or Self Care (Routine Discharge) 11/29/2024 Orders Only [facility] [address] [place] [address] Opal Bell APRN 11/28/2024 3:25 PM CDT - 11/28/2024 11:59 PM CDT Hospital Encounter [facility] [address] [place] [address] Opal Bell, [facility] Discharge Disposition: Home or Self Care (Routine Discharge) 11/28/2024 Orders Only [facility] [address] [place] [address] Opal Bell [facility] 11/28/2024 Travel from Last 3 Months Immunizations Immunization Administration Dates Next Due MODERNA COVID-19 (SAND CUTTING MACHINE OPERATOR JULI MAYKEL), MRNA, LNP-S, PF, 50 MCG/ [...] Comments Blood Pressure 130/96 10/31/2020 8:10 AM CLIENT ONBOARDING ANALYST Pulse 76 10/31/2020 8:10 AM CLIENT ONBOARDING ANALYST Temperature 36.4 C (97.6 F) 10/31/2020 8:10 AM CLIENT ONBOARDING ANALYST Respiratory Rate 16 10/31/2020 8:10 AM CLIENT ONBOARDING ANALYST Oxygen Saturation 97% 10/31/2020 8:10 AM CLIENT ONBOARDING ANALYST Inhaled Oxygen Concentration - - Weight 91.6 [...] Annual Medicare Wellness Visit 2023 COVID-19 Vaccine ( - 2023-2 5 season) 2024 08/06/2021, 12/12/2020, [...] > 40 Result Component 22(09/29/2020 9:15 AM CLIENT ONBOARDING ANALYST) No Herbert Penaloza, flame cutting machine operator Procedure Name Priority Date/Time Associated Diagnosis Comments CT CHEST+ABD+PEL W CON Routine 10:34 AM CDT Fever, unspecified Acute cough CBC W/DIFF AUTOMATED Routine 11/29/2024 9:44 AM CDT Fever, unspecified ANTINUCLEAR ANTIBODY WI RFX Routine 11/28/2024 3:50 PM CDT Fever, unspecified TOXOPLASMA, IGM ANTIBODY Routine 11/28/2024 3:50 PM CDT Fever, unspecified MISCELLANEOUS LAB TEST Routine 3:50 PM CDT Fever, unspecified HC EBV NUCLEAR AG-90 Routine 11/28/2024 3:50 PM CDT Fever, unspecified C-REACTIVE PROTEIN Routine 11/28/2024 3: 50 PM CDT Fever, unspecified from Last 3 Months Results * CT CHEST+ABD+PEL W CON (12/12/2024 10:34 AM CDT) Anatomical Region Laterality Modality Chest, Abdomen, Pelvis Computed Tomography 12/18/2024 10:5 0 AM CDT Impressions 12/18/2024 12:47 PM CDT IMPRESSION: 1. No acute intrathoracic, intra-abdominal or intrapelvic process identified. No source of the patient's symptoms identified. 2. Coronary artery disease. 3. Mesenteric panniculitis, chronically present and presumed incidental. 4. Redemonstrated bilateral L5 spondylolysis with L5-S1 spondylolisthesis. Ordered By: OPAL BELL Interpreted By: Yoel Nielsen MD, 12/18/2024 10:50 AM Narrative 12/18/2024 12:47 PM [address]T [address] [place] [address] Examination: CT of the chest, abdomen and pelvis with contrast. Exam time: 1036 hours. Clinical history: Recurrent fevers. Recurrent cough. Comparison: Noncontrast CT of the chest, 09/17/2024, contrast enhanced CT of the abdomen and pelvis, 09/11/2020, CTA chest, abdomen and pelvis, 06/12/2020. Technique: Following the administration of intravenous contrast, spiral scanning was performed through the chest, abdomen and pelvis. Sagittal and coronal reconstructions were performed from the data set. A dose lowering technique was used for this procedure, which may include, but is not limited to, dose reduction techniques, automated exposure control, the use of iterative reconstruction and ALARA/Image Gently techniques. Findings: CT CHEST: Calcific coronary artery disease, aortic valve calcification and minor atherosclerotic calcification of the aorta again evident. The heart and great vessels are otherwise unremarkable. No hilar or mediastinal adenopathy is identified. No endobronchial abnormality is identified. Allowing for respiratory motion, the lungs are clear. No pleural abnormalities are seen. The chest wall structures are unchanged. CT ABDOMEN AND PELVIS: Incidental splenule is again noted. The liver, spleen, gallbladder, pancreas, adrenals and kidneys appear unremarkable. The urinary bladder appears unremarkable. A normal-appearing appendix is visible. Haziness in the mesentery with scattered nonenlarged lymph nodes is chronically present, presumably mesenteric panniculitis which is commonly incidental and asymptomatic. There is no ascites, lymphadenopathy or bowel distention. The caliber of the abdominal aorta is normal. Bilateral L5 spondylolysis with grade I L5-S1 spondylolisthesis again evident. Procedure Note Yoel Nielsen MD - 12/18/[address] [place] [address] Examination: CT of the chest, abdomen and pelvis with contrast. Exam time: 1036 hours. Clinical history: Recurrent fevers. Recurrent cough. Comparison: Noncontrast CT of the chest, 09/17/2024, contrast enhanced CTof the abdomen and pelvis, 09/11/2020, CTA chest, abdomen and pelvis,06/12/2020. Technique: Following the administration of intravenous contrast, spiralscanning was performed through the chest, abdomen and pelvis. Sagittal andcoronal reconstructions were performed from the data set. A dose loweringtechnique was used for this procedure, which may include, but is notlimited to, dose reduction techniques, automated exposure control, the useof iterative reconstruction and ALARA/Image Gently techniques. Findings: CT CHEST: Calcific coronary artery disease, aortic valve calcification andminor atherosclerotic calcification of the aorta again evident. The heartand great vessels are otherwise unremarkable. No hilar or mediastinaladenopathy is identified. No endobronchial abnormality is identified.Allowing for respiratory motion, the lungs are clear. No pleuralabnormalities are seen. The chest wall structures are unchanged. CT ABDOMEN AND PELVIS: Incidental splenule is again noted. The liver,spleen, gallbladder, pancreas, adrenals and kidneys appear unremarkable.The urinary bladder appears unremarkable. A normal-appearing appendix isvisible. Haziness in the mesentery with scattered nonenlarged lymph nodesis chronically present, presumably mesenteric panniculitis which iscommonly incidental and asymptomatic. There is no ascites, lymphadenopathyor bowel distention. The caliber of the abdominal aorta is normal.Bilateral L5 spondylolysis with grade I L5-S1 spondylolisthesis againevident. IMPRESSION: 1. No acute intrathoracic, intra-abdominal or intrapelvic processidentified. No source of the patient's symptoms identified. 2. Coronary artery disease. 3. Mesenteric panniculitis, chronically present and presumed incidental. 4. Redemonstrated bilateral L5 spondylolysis with [id number]. Ordered By: OPAL BELL Interpreted By: Yoel Nielsen MD, 12/18/2024 10:50 AM Opal Bell [facility] CT Final Result * (ABNORMAL) CBC W/DIFF AUTOMATED (11/29/2024 9:44 AM CDT) WBC 8.81 4.00 - 10.80 x10'3/uL 11/29/2024 9:48 AM CDT [facility] RBC 6.88(H) 4.50 - 6.10 x10'6/uL 11/29/2024 9:48 AM CDT [facility] HGB 15.9 13.0 - 18.0 G/DL 11/29/2024 9:48 AM CDT [facility] HCT 52.2(H) 37.0 - 52.0 % 11/29/2024 9:48 AM CDT [facility] MCV 75.9(L) 78.0 - 100.0 FL 11/29/2024 9:48 AM CDT [facility] MCH 23.1(L) 27.0 - 31.0 PG 11/29/2024 9:48 AM CDT [facility] MCHC 30.5(L) 33.0 - 36.0 G/DL 11/29/2024 9:48 AM CDT [facility] RDW 20.1(H) 11.5 - 14.5 % 11/29/2024 9:48 AM CDT [facility] PLT 241 150 - 350 x10'3/uL 11/29/2024 9:48 AM CDT [facility] MPV 9.6 7.4 - 10.4 FL 11/29/2024 9:48 AM CDT [facility] CBC COMMENT NORMAL REFERENCE RANGE NOT ESTABLISHED FOR THE PROPORTIONAL LEUKOCYTE DIFFERENTIAL. 11/29/2024 9:48 AM CDT [facility] NEUTROPHILS % 71.1 % 11/29/2024 9:48 AM CDT [facility] LYMPHOCYTES % 16.5 % 11/29/2024 9:48 AM CDT [facility] MONOCYTES % 11.6 % 11/29/2024 9:48 AM CDT [facility] EOSINOPHILS % 0.1 % 11/29/2024 9:48 AM CDT [facility] BASOPHILS % 0.1 % 11/29/2024 9:48 AM CDT [facility] IMMATURE GRANS % 0.6 % 11/30/19 9:48 AM CDT [facility] NRBC % 0.0 % 11/29/2024 9:48 AM CDT [facility] ABS. NEUTROPHILS 6.27 1.60 - 8.30 x10'3/uL 11/29/2024 9:48 AM CDT [facility] ABS. LYMPHOCYTES 1.45 0.80 - 4.70 x10'3/uL 11/29/2024 9:48 AM CDT [facility] ABS. MONOCYTES 1.02 0.00 - 1.50 x10'3/uL 11/29/2024 9:48 AM CDT [facility] ABS. EOSINOPHILS 0.01 0.00 - 0.40 x10'3/uL 11/29/2024 9:48 AM CDT [facility] ABS. BASOPHILS 0.01 0.00 - 0.20 x10'3/uL 11/29/2024 9:48 AM CDT [facility] ABS. IMMATURE GRANULOCYTES 0.05(H) 0.00 - 0.03 x10'3/uL 11/29/2024 9:48 AM CDT [facility] ABS. NUCLEATED RBC'S 0.00 0.00 - 0.01 x10'3/uL 11/29/2024 9:48 AM CDT [facility] 11/29/2024 9:44 AM CDT us Opal Bell APRN LABORATORY Final Result [facility] [place] [address], * ANTINUCLEAR ANTIBODY WI RFX (11/28/2024 3:50 PM CDT) TERRI 0.4 12/03/2024 11:47 AM CDT [facility] Comment: NEGATIVE: <0.7 RATIO TERRI PROFILE AND TITER NOT PERFORMED THE TERRI SCREEN TESTS FOR THE FOLLOWING ANTIBODIES BY EIA: SSA1 (RO), SSB1 (LA), ALVA, SCL70, JO1, CENTROMERE, CLINICAL DIETICIAN HISTONE MUST BE ORDERED SEPARATELY DNA (DS) ANTIBODY 2.5 IU/ML 025 11:47 AM CDT [facility] Comment: NEGATIVE: <10 IU/mL EQUIVOCAL: 10 to 15 IU/mL POSITIVE: >15 IU/mL THIS QUANTITATIVE ASSAY IS CALIBRATED TO THE [employer]'S WO/80 STANDARD. THE LEVEL OF dsDNA AUTOANTIBODY GERERALLY CORRELATES WITH THE LEVEL OF DISEASE ACTIVITY IN SYSTEMIC LUPUS ERYTHMATOSUS 11/28/2024 3:50 PM CDT us Opal Bell APRN LABORATORY Final Result [facility] [address] [place] [address], [id number] * MISCELLANEOUS LAB TEST (11/28/2024 3:50 PM CDT) TEST NAME: [id number] TICK BORNE DISEASE ANTIBODY PANEL 11/28/2024 3:56 PM CDT [facility] SPECIMEN TYPE SERUM 11/28/2024 3:56 PM CDT [facility] TEST RESULT: Flexitest 1 12/05/2024 6:58 PM CDT [employer] JORDAN ECHAVARRIA Comment: Flexitest 1 A. phagocytophilum Ab [...] analytical performance characteristics have been determined by [employer] [place], [place]. It has not been cleared or [...] analytical performance characteristics have been determined by [employer]. It has not been cleared or approved by FDA. This assay has been validated pursuant to the CLIA regulations and is used for clinical purposes. Test performed by [facility] [address] [place] [address] Laboratory Engineer: Sarita Freeman MD,PHD,BIANKA Test Reported by [facility], [employer] [place], [address] [place], [place] Feroz Alejo M.D., Ph.D., Director of Laboratories , [facility] [id number] Babesia microti Ab (IgG) <1:64 <1:64 Babesia [...] analytical performance characteristics have been determined by [employer] [place], [place]. It has not been cleared or [...] period when erythema migrans is apparent. The Code of [place], Article 1 of Chapter 5 of Title 32.1, section 32.1-137.06, requires that the following language must be included on every Lyme disease test report issued by a [place] laboratory: Patients undergoing a Lyme disease test [...] analytical performance characteristics have been determined by [employer] [place], [place], [place]. It has not been cleared or approved by the U.S. Food and Drug Administration. This assay has been validated pursuant to the CLIA regulations and is used for clinical purposes. 11/28/2024 3:50 PM CDT Opal Bell APRN LABORATORY Final Result [facility] [address] [place] [address], [place] [phone] [facility] [address] [place] [address], [place] [phone] * TOXOPLASMA, IGM ANTIBODY (11/28/2024 3:50 PM CDT) TOXOPLASMA IGM <8.00 <8.00 AU/mL 11/30/2024 5:17 PM CDT [employer] HIGINIO LYNNE Comment: AU/mL Interpretation <8.00 Negative 8.00 - 9.99 Equivocal >9.99 Positive Physicians are advised to interpret the results of anti-Toxoplasma IgM tests with caution, and should not rely on any single test result as the sole determinant in diagnosing recently acquired infection. Test Performed by [facility], [employer] [facility], [address] [place], [place] Feroz Alejo M.D., Ph.D., Director of Laboratories , [facility] [id number] 11/28/2024 3:50 PM CDT Opal Bell APRN LABORATORY Final Result [employer] [facility] [address] [place], [place] , [place] [phone] * (ABNORMAL) REGULO VELA VIRUS (11/28/2024 3:50 PM CDT) Pathologist [facility] EBV VCA IGM <36.00 <36.00 U/mL 12/01/2024 5:52 PM CDT [employer] LUCERO DUMONT Comment: U/mL Interpretation <36.00 Negative 36.00 - 43.99 Equivocal >43.99 Positive EBV VCA IGG 742.00(H) <18.00 U/mL 12/01/2024 5:52 PM CDT [employer] LUCERO DUMONT Comment: U/mL Interpretation <18.00 Negative 18.00 - 21.99 Equivocal >21.99 Positive REGULO BAR NUCLEAR ANTIGEN IGG 152.00(H) <18.00 U/mL 12/01/2024 5:52 PM CDT [employer] NIYALYNDAMALVIN SELENARitu Comment: U/mL Interpretation <18.00 Negative 18.00 - 21.99 Equivocal >21.99 Positive INTERPRETATION Past 12/01/2024 5:52 PM CDT [employer] LUCERO DUMONT Comment: Suggestive of a past Regulo-Vela Virus infection. In infants, a similiar pattern may occur as a result of a passive maternal transfer of antibody. Test Performed by [facility], [employer] [facility], [address] [place] [address] Feroz Alejo M.D., Ph.D., Director of Laboratories , [facility] [id number] 11/28/2024 3:50 PM CDT Opal Bell APRN LABORATORY Final Result [employer] [facility] [address] [place] [address], [place] [phone] * (ABNORMAL) C-REACTIVE PROTEIN (11/28/2024 3:50 PM CDT) C-REACTIVE PROTEIN 1.02(H) <0.30 mg/dL 11/28/2024 4:14 PM CDT [facility] 11/28/2024 3:50 PM CDT Opal Bell APRN LABORATORY Final Result [facility] [address] [place] [address], [place] [phone] from Last 3 Months Insurance MEDICARE [facility] COMMERCIAL [facility]YER [id number] [id number] Care Teams Semiconductor Processing Technician Relationship Specialty Start Date End Date Jose Elias Borja DO [facility] [address] [place] [address] PCP - General INTERNAL MEDICINE 11/28/24 Herve Rosado MD [place] Stapling Machine Operator CARDIOVASCULAR DISEASE 02/24/16
--- OUTSIDE RECORDS SUMMARY | 2024-12-27 11:17 | XMS_ITS | Encounter Summary ---
Author Organization [facility] Address [facility] [place] [address] Care Team Providers Care Inner Diameter Grinder Tool Name Role Phone Herve Rosado MD Unavailable Unavailable Sunil Griffith MD Primary Care Provider [phone] Michael Luis MD Primary Care Provider [phone] Iris Pantoja Primary Care Provider [phone] Jose Elias Borja DO Primary Care Provider [phone] Encounter Details Date Type Department Care Team (Late st Contact Info) Description 01/27/2019 Abstract [facility] CONVERSION [address] [place] [address] , Generic Conversion, Social History [...] > 40 Result Component 22(09/29/2020 9:15 AM WOOD PATTERNMAKER) No Herbert Penaloza, RN documented as of this encounter Visit Diagnoses Not on filedocumented in this encounter Additional Health Concerns Infection Onset Date Last Indicated Resolved Time COVID-19 Rule Out 10/27/2020 10/28/2020 10/30/2020 5:50 AM WOOD PATTERNMAKER COVID-19 Rule Out 02/03/2024 02/03/2024 02/04/2024 5:10 PM CDT Parainfluenza 02/03/2024 02/03/2024 02/13/2024 12: 32 AM CDT documented as of this encounter Care Teams Inner Diameter Grinder Tool Relationship Specialty Start Date End Date Sunil Griffith MD [address] [place] [id number] PCP - General FAMILY PRACTICE 03/15/16 06/11/20 Michael Luis MD [address] [place] [address] PCP - General FAMILY PRACTICE 06/12/20 09/15/23 Iris Pantoja APNP [address] [place] [id number] PCP - General NURSE PRACTITIONER 09/16/23 11/27/24 Jose Elias Borja DO [facility] [address] [place] [id number] PCP - General INTERNAL MEDICINE 11/28/24 Herve Rosado MD [place] Animal Shelter Worker CARDIOVASCULAR DISEASE 02/24/16 documented as of this encounter
[2024-12-29 03:29] LABS: Myeloperoxidase Ab 19.5 AI
== END 2024-12-27 11:04 | disposition home or self-care (01) ==
LOC: ANHGOSHLAB 11:05
PROVIDERS: PCP Nurse Practitioner; Visit Provider Nurse Practitioner
DX: R50.9 Fever, unspecified (principal); R05.9 Cough, unspecified
CPT/HCPCS: 36415; 86036

== ENCOUNTER 2025-04-16 09:57 | Outpatient (CLI) | payer MEDICARE, SELFPAY ==
--- OUTSIDE RECORDS SUMMARY | 2025-04-16 08:20 | XMS_ITS | Encounter Summary ---
Author Organization [facility] Address [address] [place] [address] Care Team Providers Care Piping Manager Name Role Phone Opal Bell APRN-DENITRATOR Primary Care Provider [phone] Reason for Visit * Reason Comments Establish Care + M anitbody Encounter Details Date Type Department Care Team (Late st Contact Info) Description 04/16/2025 8:20 AM CDT Office Visit [facility] Medical [facility] - Rheumatology [address], [address] [place] [address] Benny Cohn DO [address] [place] [address] P-ANCA and MPO antibodies positive (Primary Dx) Social History Tobacco Use Types Packs/Day Years Used Date Smoking Tobacco: Never Assessed PHQ-2 Answer Date Recorded Patient Health Questionnaire-2 Score 0 04/16/2025 Sex and Gender Information Value Date Recorded Sex Assigned at Not on file Legal Sex Male 2:47 PM CDT Gender Identity Not on file Sexual Orientation Not on file documented as of this encounter Last Filed Vital Signs Vital Sign Reading Time Taken Comments Blood Pressure 132/80 04/16/2025 8:02 AM CDT Pulse 67 04/16/2025 8:02 AM CDT Temperature 36.7 C (98 F) 04/16/2025 8:02 AM CDT Respiratory Rate 16 04/16/2025 8:02 AM CDT Oxygen Saturation 95% 04/16/2025 8:02 AM CDT Inhaled Oxygen Concentration - - Weight 98.4 kg (217 lb) 04/16/2025 8:02 AM CDT Height - - Body Mass Index - - documented in this encounter Functional Status * Over the past 2 weeks, how often have you been bothered by any of the following problems? Question Answer Date of Assessment Author Little interest or pleasure in doing things Not at all 04/16/2025 8:12 AM CDT Jo-Ann Khan LPN Feeling down, depressed, or hopeless Not at all 04/16/2025 8:12 AM CDT Jo-Ann Khan LPN Patient Health Questionnaire-2 Score 0 04/16/2025 8:12 AM CDT Jo-Ann Khan LPN documented as of this encounter Plan of Treatment Upcoming Encounters Date Type Department Care Team (Late st Contact Info) Description 07/15/2025 10:00 AM HOSPITAL INTERNSHIP Office Visit [facility] - Rheumatology [address], [address] [place] [address] Benny Cohn DO [address] [place] [address] Scheduled Orders Name Type Priority Associated Diagnoses Orde r Schedule URINALYSIS REFLEX TO MICROSCOPIC NO CULTURE Lab Routine P-ANCA and MPO antibodies positive 1 Occurrences starting 04/16/2025 until 05/11/2026 URINE MICROSCOPIC ONLY Lab Routine P-ANCA and MPO antibodies positive Ordered: 04/16/2025 URINALYSIS W/MICROSCOPIC NO CULTURE Lab Routine P-ANCA and MPO antibodies positive Ordered: 04/16/2025 documented as of this encounter Visit Diagnoses Diagnosis P-ANCA and MPO antibodies positive- Primary Other and unspecified nonspecific immunological findings documented in this encounter Care Teams Piping Manager Relationship Specialty Start Date End Date Opal Bell APRN-DENITRATOR [address] [place] [address] PCP - General Nurse Practitioner 03/13/25 documented as of this encounter
--- OUTSIDE RECORDS SUMMARY | 2025-04-16 10:24 | XMS_ITS | Clinical Summary ---
Author Organization [facility] Address [address] [place] [address] Care Team Providers Care Nuclear Medical Tech Name Role Phone [facility] Primary Care Provider [phone] Source Comments [facility],non-owned Affiliates and Associated Physician Practices is amultiple site organization consisting of ambulatory clinics and hospital sitesin [place] and [place]. This disclosure is being madepursuant to the Care Everywhere program and may not contain all information available regarding this patient. Last updated 18.[facility] Allergies Active Allergy Reactions Criticality Noted Date Comments Lisinopril Cough 04/16/2025 Medications * Be aware that medications may not be up to date on this document. Alwaysverify current medications with the patient. albuterol HFA (Proventil; Ventolin; Proair) 108 (90 Base) MCG/ACT inhaler INHALE 2 PUFFS BY MOUTH EVERY 6 TO 8 HOURS NEEDED FOR SHORTNESS OF BREATH FOR WHEEZING 5 Active amLODIPine (Norvasc) 10 MG tablet Take 1 (one) tablet by mouth once daily Active atorvastatin (Lipitor) 10 MG tablet Take 1 (one) tablet by mouth once daily Active Magnesium Oxide 250 MG 250 mg once daily Active Cyanocobalamin 1000 MCG Take 1 (one) tablet by mouth once daily Active Calcium Carb-Cholecalci ferol (Calcium 1000 + D) 1000-20 MG-MCG TABS Take by mouth Active metoprolol succinate XL 24hr (Toprol XL) 50 MG tablet Take 1 (one) tablet by mouth once daily Active Inkom-3 Fatty Acids (fish oil) 1000 MG capsule Active omeprazole (PriLOSEC) 40 MG capsule Take 1 (one) capsule by mouth 2 times daily Active Testosterone Enanthate 50 MG/0.5ML SOAJ Inject under the skin once a week Active tadalafil (Cialis) 5 MG tablet Take 1 (one) tablet by mouth once daily Active fexofenadine (Kimmie) 180 MG tablet Take by mouth once daily Active Turmeric 500 MG Acti ve zinc sulfate (Zincate) 220 (50 ZN) MG capsule Take 1 (one) capsule by mouth once daily Active Ashwagandha 125 MG CAPS Active DHEA 25 MG Active diclofenac sodium EC (Voltaren) 75 MG tablet Take 1 (one) tablet by mouth 2 times daily Active Encounters Date Type Department Care Team Description 04/16/2025 8:20 AM CDT Office Visit [facility] - Rheumatology [address] [place] [address], [address] [place] [address] Benny Cohn DO P-ANCA and MPO antibodies positive (Primary Dx) 03/13/2025 Telephone [facility] - Rheumatology [address] [place] [address], [address] [place] [address] Benny Cohn DO Referral from Last 3 Months Social History Tobacco Use Types Packs/Day Years [...] - - Body Mass Index - - Plan of Treatment Upcoming Encounters Date Type Department Care Team (Late st Contact Info) Description 07/15/2025 10:00 AM TELLER Office Visit [facility] - Rheumatology [address], [address] [place] [address] Benny Cohn DO [address] [place] [address] Health Maintenance Due Date Last Done Comments COLOGUARD (AGES 45-75) - COL ON CA SCREENING 1958 COLON MONITORING 1958 COLONOSCOPY - COLON CA SCREENING 1958 CT COLONOGRAPHY - COLON CA SCREENING 1958 Colorectal Cancer Screening 1958 FIT - COLON CA SCREENING 1958 FLEX SIG - COLON CA SCREENING 1958 LIPID TESTING 1958 HEPATITIS C SCREENING 01/06/1976 DTAP/TDAP/TD VACCINES (1 - Tdap) 1977 PNEUMOCOCCAL VACCINE 50+ (1 of 1 - PCV) 01/11/2008 ZOSTER VACCINE (1 of 2) 01/11/2008 COVID-19 VACCINE (2 - 2023-2 5 season) 2024 08/06/2021 INFLUENZA VACCINE (#1) 2025 06/24/2022 Respiratory Syncytial Virus (RSV) Vaccine Pt: or over 60 yrs (1 - 1-dose 75+ series) 2033 DEPRESSION SCREENING Completed 04/16/2025 HEPATITIS B VACCINE Aged Out No longe r eligible based on patient's age to complete this topic HIB VACCINE Aged Out No longer eligi ble based on patient's age to complete this topic HPV VACCINE Aged Out No longer eligi ble based on patient's age to complete this topic MENINGOCOCCAL (Group B) VACC INE SHARED DECISION-MAKING Aged Out No longer eligibl e based on patient's age to complete this topic MENINGOCOCCAL GROUPS A/C/Y/W VACCINE Aged Out No longer eligible b ased on patient's age to complete this topic Insurance MEDICARE [employer] Care Teams Nuclear Medical Tech Relationship Specialty Start Date End Date Opal Bell APRN-PULP MAKING PLANT OPERATOR [address] [place] [address] PCP - General Nurse Practitioner 03/13/25
--- OUTSIDE RECORDS SUMMARY | 2025-04-16 10:24 | XMS_ITS | Clinical Summary ---
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 Start Date Job 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[employer] Not on file Not on file Not [...] 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 Height 180.3 cm (5' 11) 06/24/2023 8:5 7 AM CDT Body Mass [...] 01/11/2008 Well Visit 65+ 2023 Influenza Vaccine (#1) 2025 06/24/2022 Insurance MEDICARE [facility] CLAIMS OFFICE [facility] MEDICARE SUPPLEMENT MEDICARE [employer] CLAIMS OFFICE Care Teams Certified Legal Secretary Specialist Relationship Specialty Start Date End Date Iris Pantoja NP [address] [place] [address] PCP - General Family Medicine 06/18/24 Makeda North MD [address] DIV IM BONE MARROW TRANSPLANT, [address] [place] [address] 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
[2025-04-16 14:40] LABS: Appearance Urine Clear (Clear); Glucose Urine UA Negative (Negative); Leukocyte Esterase Ur Negative LEU/UL (Negative); Nitrate Urine Negative (Negative); Specific Grav Ur 1.013 (1.001-1.035)
[2025-04-17 14:53] LABS: Add Urine Microscopic? YES
== END 2025-04-16 09:58 | disposition home or self-care (01) ==
PROVIDERS: PCP Internal Medicine; Visit Provider Internal Medicine Rheumatology
DX: R76.8 Other specified abnormal immunological findings in serum (principal)
CPT/HCPCS: 81001; 81003